=== PATIENT | male | born 1950 | race Caucasian/White ===

== ENCOUNTER 2019-01-12 06:17 | Inpatient (IN) | payer OTHER ==
[2019-01-12] MEDS ORDERED: fentaNYL CITRATE 250 MCG/5 ML VIAL ONE (07:22)
[2019-01-12] MEDS ORDERED: SUCCINYLCHOLINE CHLORIDE 200 MG/10 ML SYRINGE ONE (07:22)
[2019-01-12] MEDS ORDERED: PROPOFOL 20 ML ONE ×33 (07:22→16:09)
[2019-01-12] MEDS ORDERED: BENZOIN TINCTURE SWABSTICK TP ONE (07:23)
[2019-01-12] MEDS ORDERED: LIDOCAINE HCL/PF 2% SDV 5ML VIAL ONE (07:23)
[2019-01-12] MEDS ORDERED: ceFAZolin SODIUM 1 GM VIAL ONE ×3 (07:23→16:44)
[2019-01-12] MEDS ORDERED: HEPARIN NA (PORCINE) 5,000 UNITS/ML 1ML VIAL ONE ×2 (07:23→07:30)
[2019-01-12] MEDS ORDERED: THROMBIN (BOVINE) 5,000 UNIT VIAL TP ONE (07:23)
[2019-01-12] MEDS ORDERED: DEXAMETHASONE SOD PHOSPHATE 4 MG/1 ML VIAL ONE (07:23)
[2019-01-12] MEDS ORDERED: ONDANSETRON 4 MG/2 ML VIAL ONE (07:23)
[2019-01-12] MEDS ORDERED: TRANEXAMIC ACID 1000 MG/10 ML VIAL ONE ×2 (07:23→16:44)
[2019-01-12] MEDS ORDERED: VANCOMYCIN 1,000 MG VIAL (RESTRICTED TO ID ONLY) ONE (07:23)
[2019-01-12] MEDS ORDERED: BUPIVACAINE HCL/PF 0.25% (2.5MG/ML) 10 ML VIAL ONE ×2 (07:26→08:02)
[2019-01-12] MEDS ORDERED: MORPHINE 5 MG/10 ML AMP - FOR COMPOUNDING USE ONLY ONE (07:56)
[2019-01-12] MEDS ORDERED: BUPIVACAINE LIPOSOME/PF (EXPAREL) 266 MG/20 ML VIAL ONE (08:01)
[2019-01-12] MEDS ORDERED: MIDAZOLAM HCL 2 MG/2 ML SINGLE DOSE VIAL ONE ×2 (08:04)
[2019-01-12] MEDS ORDERED: VANCOMYCIN 1,000 MG VIAL (RESTRICTED TO ID ONLY) IVPB ONE (08:10)
[2019-01-12] MEDS ORDERED: ceFAZolin SODIUM 1 GM VIAL IVPB ONE (08:30)
[2019-01-12] MEDS ORDERED: KETAMINE HCL 200 MG/20 ML VIAL ONE ×2 (08:56→13:37)
[2019-01-12] MEDS ORDERED: ePHEDrine SULFATE 50 MG/1 ML AMPULE ONE (09:14)
[2019-01-12] MEDS ORDERED: ROCURONIUM BROMIDE 50 MG/5 ML VIAL ONE (10:39)
[2019-01-12] MEDS ORDERED: GLYCOPYRROLATE 0.2 MG/1 ML VIAL ONE (11:11)
[2019-01-12] MEDS ORDERED: NEOSTIGMINE METHYLSULFATE 0.5 MG/1 ML - 10 ML MDV ONE (11:11)
[2019-01-12 11:14] LABS: INR 1.14 (0.83-1.09); PROTHROMBIN TIME (PATIENT) 13.5 SEC (9.7-13.0)
[2019-01-12 11:17] LABS: ACTIVATED PTT 35.4 SECONDS (25.2-36.5)
[2019-01-12] MEDS ORDERED: PHENYLEPHRINE HCL 10 MG/1 ML SINGLE DOSE VIAL ONE (13:21)
[2019-01-12] MEDS ORDERED: ONDANSETRON 4 MG/2 ML VIAL IVPUSH PRN ×3 (14:02→18:49)
[2019-01-12] MEDS ORDERED: morphine SULFATE/PF 0.5 MG/ML (2cc Syringe - QUVA) IT ONE (14:04)
[2019-01-12] MEDS ORDERED: NALOXONE HCL 0.4 MG/ML VIAL IVPUSH PRN (14:04)
[2019-01-12] MEDS ORDERED: LACTATED RINGERS SOLUTION 1,000 ML IV SCH (14:15)
--- NOTE | 2019-01-12 15:26 | PN ---
Progress Note (short form) - Note Progress Note: 55M POD #0 s/p: 1. L1, L2, L3, L4, L5, S1 bilateral laminectomies 2. L1, L2, L3, L4, L5, S1 bilateral osteotomies (facetectomies) 3. L2-L3 bilateral Rodriguez Rosales Osteotomies 4. T5-S1 posterior instrumentation 5. L3-L4, L4-L5, L5-S1 discectomies 6. L3-L4, L4-L5, L5-S1 posterior lumbar interbody fusion 7. L3-L4, L4-L5, L5-S1 insertion biomechanical devices 8. T5-S1 posterolateral arthrodesis 9. Kyphoscoliosis deformity correction 10. Bone allograft 11. Bone autograft 12. Bone marrow aspiration 13. Complex wound closure (60cm) -Admit to ICU post-op. -Pain control: patient received pre-op TLIP block w/Exparel; OK to use SAFETY COMPLIANCE SPECIALIST if needed; transition to oral analgesia post-op; NO NSAID's. -DVT PPx: -Mechanical only: SINGH's, SCD's. -Chemical: None. -Incentive spirometry q15 min. -NPO until flatus. -Wise care; d/c when ambulating. -Post-op Ancef x 3 doses. -PT/OT/Rehab, OOB. -WBAT B/L LE. -No bending, lifting (>5 lbs), or twisting for 9-12 months. -Care per ICU & medical hospitalist Dr. Contreras. -Discharge planning: [facility]; f/u 7-10 days after rehab discharge at [facility] [address] [facility]; call for appointment; . -Will follow. Nathan Phan MD (Orthopaedic Surgery).
--- NOTE | 2019-01-12 15:30 | OP ---
Operative Note - Note: Operative Date: 01/12/19 Pre-Operative Diagnosis: 1. Thoracolumbar kyphoscoliosis with sagital vertical malalignment deformity. 2. 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 3. L1-S1 spinal stenosis with neurogenic claudication. 4. Thoracolumbar axial segmental instability. Severity of illness: 4. Operation: 1. L1, L2, L3, L4, L5, S1 bilateral laminectomies. 2. L1, L2, L3, L4 , L5, S1 bilateral osteotomies (facetectomies). 3. L2-L3 bilateral Rodriguez Rosales Osteotomies. 4. T5-S1 posterior instrumentation. 5. L3-L4, L4-L5, L5- S1 discectomies. 6. L3-L4, L4-L5, L5-S1 posterior lumbar interbody fusion. 7. L3-L4, L4-L5, L5-S1 insertion biomechanical devices. 8. T5-S1 posterolateral arthrodesis. 9. Kyphoscoliosis deformity correction. 10. Bone allograft. 11. Bone autograft. 12. Bone marrow aspiration. 13. Complex wound closure (60cm) Implants: Cages: Fortilink Tetrafuse. L3-L4: 15mm. L4-L5: 9mm. L5-S1: 16mm. Screws: 10x: 6.5x50mm. 13x: 6.5x40mm. 2x: 7.5x40mm. Rods: 2 x 500mm. Cross-Link: 1 Post-Operative Diagnosis: Same as Pre-op Surgeon: Nathan Phan Physician Surgeon: Donald Phan Anesthesiologist/PHOTOSTATIC COPY MAKER: Sanjana Yee Anesthesia: General, Local (TLIP block) Specimens Removed: L3-L4, L4-L5, L5-S1 discs Estimated Blood Loss (mls): 3,000 Drains & Tubes with Location: 1 x deep HemoVac Blood Volume Replaced (mls): 2,650 (Cell Saver+4U PRBC) Fluid Volume Replaced (mls): 4,000 (Crystalloid) Operative Report Dictated: Yes
[2019-01-12] MEDS ORDERED: SODIUM CHLORIDE 0.9% P/F 10 ML VIAL IJ ONE (16:45)
[2019-01-12] MEDS ORDERED: ACETAMINOPHEN 1000 MG/100 ML VIAL (NON FORMULARY) IVPB SCH (19:00)
[2019-01-12 20:17] LABS: EPI CELLS 0.5 /HPF (0-5/HPF); HYALINE CASTS 0 /lpf (0-8); URINE APPEARANCE TURBID; URINE BACTERIA 20.3 /hpf (NEGATIVE); URINE BILIRUBIN NEGATIVE (NEGATIVE); URINE COLOR YELLOW; URINE GLUCOSE (UA) NEGATIVE (NEGATIVE); URINE KETONE 1+ (NEGATIVE); URINE LEUK ESTERASE NEGATIVE (NEGATIVE); URINE NITRITE NEGATIVE (NEGATIVE); URINE PROTEIN TRACE (NEGATIVE); URINE RBC 113 /hpf (0-4); URINE UROBILINOGEN 0.2 mg/dL (0.2-1.0); URINE WBC 5 /hpf (0-5)
[2019-01-12] MEDS: ACETAMINOPHEN 1000 MG/100 ML VIAL (NON FORMULARY) IVPB SCH (20:21)
[2019-01-12] MEDS: LACTATED RINGERS SOLUTION 1,000 ML IV SCH (21:00)
--- NOTE | 2019-01-12 21:46 | CONSULT ---
Consultation: CONSULT SERVICE: ICU Resident HISTORY OF PRESENT ILLNESS: 68yo M with h/o hypothryoidism and chronic pain on medical marijuana who presents to the ICU s/p incredibly invasive spine surgery with Dr. Phan. Pt in OR had EBL of 3L with Cellsaver and 4UPRBC returning 2650cc worth of blood. Duration of procedure roughly 7-8 hrs under general anesthesia. Pt's procedure was uncomplicated, however due to the length of the procedure pt remained sedate during his recovery phase. Pt is seen intubated without sedation currently. Pt slightly arouses with painful stimuli. REVIEW OF SYSTEMS: As per HPI PHYSICAL EXAMINATION Vital Signs 01/12/19 01/12/19 01/12/19 06:53 19:00 19:07 Temperature 98.3 F 97.5 F L Pulse Rate 87 74 Respiratory 20 12 14 Rate Blood Pressure 143/99 97/79 O2 Sat by Pulse 97 100 Oximetry (%) 01/12/19 01/12/19 01/12/19 19:25 19:40 19:55 Temperature Pulse Rate 76 71 72 Respiratory 14 15 15 Rate Blood Pressure 106/73 97/74 101/68 O2 Sat by Pulse 100 100 Oximetry (%) 01/12/19 01/12/19 01/12/19 20:10 20:25 20:40 Temperature 97.5 F L Pulse Rate 87 88 89 Respiratory 18 18 18 Rate Blood Pressure 103/65 102/70 115/79 O2 Sat by Pulse 99 100 96 Oximetry (%) 01/12/19 21:00 Temperature Pulse Rate Respiratory 15 Rate Blood Pressure O2 Sat by Pulse 100 Oximetry (%) GENERAL: NAD, intubated, continued sedatative state HEENT: Nc/AT, ETT in place and secured, slight pallor noted, pinpoint pupils with appropriate reactivity, MMM NECK: No JVD LUNGS: CTA bilaterally. No wheezes, and no crackles. No accessory muscle use. HEART: RRR, normal S1 and S2 without murmur ABDOMEN: Soft, nondistended, no grimmacing with abdominal palpation, hypoactive bowel sounds, no masses. No hepatomegaly MUSCULOSKELETAL: Surgical dressing in place on back, no deformities noted, feet offloaded EXTREMITIES: 2+ distal pulses, warm, well-perfused. No peripheral edema. NEUROLOGICAL: Unable to assess due to sedation SKIN: Warm, dry, no rashes LINES: Wise in place with yellow urine in tube and collection bag, Hemovac drain noted Laboratory Results 01/12/19 01/12/19 01/12/19 06:27 08:01 10:35 PT with INR 13.50 H INR 1.14 H PTT (Actin FS) 35.4 Urine Color Urine Appearance Urine pH Ur Specific [place] Urine Protein Urine Glucose (UA) Urine Ketones Urine Blood Urine Nitrite Urine Bilirubin Urine Urobilinogen Ur Leukocyte Esterase Urine WBC (Auto) Urine RBC (Auto) Urine Casts (Auto) U Epithel Cells (Auto) Urine Bacteria (Auto) Blood Type A POSITIVE A POSITIVE Antibody Screen Negative Crossmatch IS Only See Detail 01/12/19 19:30 PT with INR INR PTT (Actin FS) Urine Color Yellow Urine Appearance Turbid Urine pH 5.0 Ur Specific [place] 1.038 H Urine Protein Trace Urine Glucose (UA) Negative Urine Ketones 1+ H Urine Blood 2+ H Urine Nitrite Negative Urine Bilirubin Negative Urine Urobilinogen 0.2 Ur Leukocyte Esterase Negative Urine WBC (Auto) 5 Urine RBC (Auto) 113 Urine Casts (Auto) 0 U Epithel Cells (Auto) 0.5 Urine Bacteria (Auto) 20.3 Blood Type Antibody Screen Crossmatch IS Only Active Medications Generic Name Dose Route Start Last Admin Trade Name Freq PRN Reason Stop Dose Admin Acetaminophen 1,000 mg 01/12/19 14:15 01/12/19 20:21 Ofirmev Injection - IVPB 01/13/19 08:16 1,000 mg Q6H HERRERA Administration Cefazolin Sodium/Dextrose 2 gm 01/12/19 23:00 Ancef 2 Gm Premixed Ivpb - IVPB 01/13/19 15:01 Q8H HERRERA Diphenhydramine HCl 25 mg 01/12/19 14:04 Benadryl Injection - IVPUSH ONCE PRN FOR ITCHING Fentanyl 50 mcg 01/12/19 14:02 01/12/19 20:25 Sublimaze Injection - IVPUSH 50 mcg [id number] PRN Administration PAIN-PACU ORDER X 4 DOSES ONLY Lactated Ringer's 1,000 mls @ 125 mls/hr 01/12/19 19:00 01/12/19 21:00 Lactated Ringers Solution IV 125 mls/hr ASDIR HERRERA Administration Levothyroxine Sodium 200 mcg 01/13/19 10:00 Synthroid - PO DAILY [facility] Morphine Sulfate 4 mg 01/13/19 14:06 Morphine Sulfate IVPUSH Q3H PRN Severe Pain 7-10 Naloxone HCl 0.4 mg 01/12/19 14:04 Narcan - IVPUSH ONCE PRN Sedation Ondansetron HCl 4 mg 01/12/19 14:04 Zofran Injection IVPUSH ONCE PRN NAUSEA Ondansetron HCl 4 mg 01/12/19 18:49 Zofran Injection IVPUSH Q6H PRN NAUSEA AND/OR VOMITING Oxycodone HCl 10 mg 01/13/19 14:04 Roxicodone - PO Q3H PRN Mild Pain 1-3 Oxycodone HCl 15 mg 01/13/19 14:04 Roxicodone - PO Q3H PRN Moderate Pain 4-6 Oxycodone HCl 10 mg 01/12/19 22:00 Oxycontin - PO BID [facility] Pregabalin 200 mg 01/12/19 22:00 Lyrica - PO TID [facility] ASSESSMENT/PLAN: T5 - S1 spinal instrumentation and procedure POD#0 Hypothyroidism --Pt trialed on CPAP for 30 minutes with RSI indicated likely successful extubation --Pt now following commands fully, however in pain --Pt extubated to VM 50% for time being now tolerating well --Bedside swallow to evaluate for medication administration otherwise NPO until flatus --Pain mgmt per Oxy 10mg BID PO scheduled with choice of oxycodone 10/15 for breakthrough pain --No NSAIDs given spinal procedure and reported AE in EMR --UA without any significant picture for infection --Wise to continue overnight --Perioperative antibiotics on board --Continue Lyrica 200mg TID --Pt's notes that he can have neuromotor convulsive-like behaviour when pt does not receive doses --Continue Synthroid 200mcg qdaily FEN: Fluids: LR until pt can tolerate PO Electrolyte abnormalities: AM labs Nutrition: NPO except for medications if passes bedside swallow can advance as tolerated once able to sit upwards PPX: DVT - SCDs only GI - Not indicated currently Dispo: ICU monitoring post extubation Case discussed with surgical and anesthesia teams Chito Wright, DO - IM PGY-2 Visit type - Emergency Visit Emergency Visit: No - New Patient This patient is new to me today: Yes Date on this admission: 01/13/19 - Critical Care Critical Care patient: Yes Total Critical Care Time (in minutes): 35 Critical Care Statement: The care of this patient involved high complexity decision making to prevent further life threatening deterioration of the patient 's condition and/or to evaluate & treat vital organ system(s) failure or risk of failure.
[2019-01-12] MEDS ORDERED: oxyCODONE HCL 10 MG SUSTAINED ACTING TABLET PO SCH (22:00)
[2019-01-12] MEDS ORDERED: DOCUSATE SODIUM 100 MG CAPSULE (FP) PO SCH (22:00)
[2019-01-12] MEDS: PREGABALIN 100 MG CAPSULE PO SCH (23:46)
[2019-01-12] MEDS: ceFAZolin 2 GRAM PREMIX BAG IVPB SCH (23:55)
[2019-01-13] MEDS ORDERED: morphine SULFATE 4 MG/ML VIAL IVPUSH ONE (01:08)
[2019-01-13] MEDS ORDERED: morphine SULFATE 4 MG/ML VIAL ONE (01:12)
[2019-01-13] MEDS ORDERED: HYDROmorphone *PCA* 10MG/50ML DISP.SYRIN PCA SCH (02:30)
[2019-01-13] MEDS: ACETAMINOPHEN 1000 MG/100 ML VIAL (NON FORMULARY) IVPB SCH ×4 (03:17→08:40)
[2019-01-13 06:05] LABS: HEMATOCRIT 40.1 % (35.4-49); HEMOGLOBIN 13.9 GM/dL (11.7-16.9); MCH 29.8 pg (25.7-33.7); MCHC 34.5 g/dl (32.0-35.9); MEAN CELL VOLUME 86.1 fl (80-96); MEAN PLT VOLUME 9.8 fl (7.5-11.1); PLATELET COUNT 111 K/MM3 (134-434); RBC 4.66 M/mm3 (4.00-5.60); RDW 14.2 % (11.9-15.9)
[2019-01-13] MEDS: PREGABALIN 100 MG CAPSULE PO SCH ×3 (06:20→21:47)
[2019-01-13] MEDS: ceFAZolin 2 GRAM PREMIX BAG IVPB SCH ×2 (06:20→15:34)
[2019-01-13 06:28] LABS: BLOOD UREA NITROGEN 22.5 mg/dL (7-18); CALCIUM 7.6 mg/dL (8.5-10.1); CREATININE 0.8 mg/dL (0.55-1.3); POTASSIUM 4.1 mmol/L (3.5-5.1)
--- NOTE | 2019-01-13 07:34 | PN ---
Physical Exam: SUBJECTIVE: Patient seen and examined at bedside this morning. Patient is POD # 1 s/p L1, L2, L3, L4, L5, S1 bilateral laminectomies, L1, L2, L3, L4, L5, S1 bilateral osteotomies (facetectomies), L2-L3 bilateral Rodriguez Rosales Osteotomies, T5-S1 posterior instrumentation, L3-L4, L4-L5, L5-S1 discectomies, L3-L4, L4-L5, L5-S1 posterior lumbar interbody fusion, L3-L4, L4-L5, L5-S1 insertion biomechanical devices,T5-S1 posterolateral arthrodesis, Kyphoscoliosis deformity correction. Patient endorses significant back pain, and his hydromorphone RESIDENTIAL CARE OFFICER settings were adjusted by Anesthesia this morning. Patient urinating via gaytan catheter, has not yet passed flatus or bowel movement. He denies subjective fevers, chills, shortness of breath, chest pain, palpitations, abdominal pain, nausea, vomiting. OBJECTIVE: Vital Signs Period Temp Pulse Resp BP Sys/Man Pulse Ox Last 24 Hr 97.5 F-98.3 F 71-97 12-21 97-115/57-87 96-100 GENERAL: The patient is awake, alert, and fully oriented, in no acute distress. HEAD: Normocephalic, atraumatic. EYES: PERRL, extraocular movements intact, sclera anicteric, conjunctiva clear. ENT: Oropharynx clear without exudates, moist mucous membranes. NECK: Supple without lymphadenopathy LUNGS: Good inspiratory effort and air entry bilaterally. Breath sounds equal, clear to auscultation bilaterally. No wheezes, no crackles. No accessory muscle use. HEART: Regular rate and rhythm, S1, S2 without murmur, rub or gallop. ABDOMEN: Soft, nondistended, nontender to light and deep palpation x4 quadrants. Normoactive bowel sounds, no guarding, no rebound tenderness. EXTREMITIES: 2+ radial, dorsalis pedis pulses bilaterally. Warm, well-perfused. No lower extremity edema bilaterally. NEUROLOGICAL: Cranial nerves II through XII grossly intact. Strength 5/5 bilateral upper and lower extremities. Sensation grossly intact bilaterally. No gross focal defects. PSYCH: Normal mood, normal affect upon my encounter. SKIN: Warm, dry. Dressing clean, dry, intact. LINES: Gaytan catheter (01/12), Hemovac drain (12/2018). Laboratory Results - last 24 hr 01/12/19 01/12/19 01/12/19 06:27 08:01 10:35 WBC RBC Hgb Hct MCV MCH MCHC RDW Plt Count MPV PT with INR 13.50 H INR 1.14 H PTT (Actin FS) 35.4 Sodium Potassium Chloride Carbon Dioxide Anion Gap BUN Creatinine Est GFR (CKD-EPI)AfAm Est GFR (CKD-EPI)NonAf Random Glucose Calcium Urine Color Urine Appearance Urine pH Ur Specific [place] Urine Protein Urine Glucose (UA) Urine Ketones Urine Blood Urine Nitrite Urine Bilirubin Urine Urobilinogen Ur Leukocyte Esterase Urine WBC (Auto) Urine RBC (Auto) Urine Casts (Auto) U Epithel Cells (Auto) Urine Bacteria (Auto) Blood Type A POSITIVE A POSITIVE Antibody Screen Negative Crossmatch IS Only See Detail 01/12/19 01/13/19 01/13/19 19:30 05:40 05:40 WBC 15.0 H RBC 4.66 Hgb 13.9 Hct 40.1 MCV 86.1 MCH 29.8 MCHC 34.5 RDW 14.2 Plt Count 111 L MPV 9.8 PT with INR INR PTT (Actin FS) Sodium 142 Potassium 4.1 Chloride 110 H Carbon Dioxide 25 Anion Gap 6 L BUN 22.5 H Creatinine 0.8 Est GFR (CKD-EPI)AfAm 107.13 Est GFR (CKD-EPI)NonAf 92.44 Random Glucose 125 H Calcium 7.6 L Urine Color Yellow Urine Appearance Turbid Urine pH 5.0 Ur Specific [place] 1.038 H Urine Protein Trace Urine Glucose (UA) Negative Urine Ketones 1+ H Urine Blood 2+ H Urine Nitrite Negative Urine Bilirubin Negative Urine Urobilinogen 0.2 Ur Leukocyte Esterase Negative Urine WBC (Auto) 5 Urine RBC (Auto) 113 Urine Casts (Auto) 0 U Epithel Cells (Auto) 0.5 Urine Bacteria (Auto) 20.3 Blood Type Antibody Screen Crossmatch IS Only Active Medications Generic Name Dose Route Start Last Admin Trade Name Freq PRN Reason Stop Dose Admin Acetaminophen 1,000 mg 01/12/19 14:15 01/13/19 03:19 Ofirmev Injection - IVPB 01/13/19 08:16 1,000 mg Q6H HERRERA Administration Cefazolin Sodium/Dextrose 2 gm 01/12/19 23:00 01/13/19 06:20 Ancef 2 Gm Premixed Ivpb - IVPB 01/13/19 15:01 2 gm Q8H HERRERA Administration Diphenhydramine HCl 25 mg 01/12/19 14:04 Benadryl Injection - IVPUSH ONCE PRN FOR ITCHING Hydromorphone HCl 10 mg 01/13/19 02:30 01/13/19 03:20 Hydromorphone 10 Mg/50 Ml-Ns RESIDENTIAL CARE OFFICER 01/20/19 02:31 10 mg RESIDENTIAL CARE OFFICER HERRERA Administration Protocol Lactated Ringer's 1,000 mls @ 125 mls/hr 01/12/19 19:00 01/12/19 21:00 Lactated Ringers Solution IV 125 mls/hr ASDIR HERRERA Administration Levothyroxine Sodium 200 mcg 01/13/19 10:00 Synthroid - PO DAILY HERRERA Naloxone HCl 0.4 mg 01/12/19 14:04 Narcan - IVPUSH ONCE PRN Sedation Ondansetron HCl 4 mg 01/12/19 14:04 Zofran Injection IVPUSH ONCE PRN NAUSEA Ondansetron HCl 4 mg 01/12/19 18:49 Zofran Injection IVPUSH Q6H PRN NAUSEA AND/OR VOMITING Oxycodone HCl 10 mg 01/13/19 14:04 Roxicodone - PO Q3H PRN PAIN LEVEL 7 - 10 Pregabalin 200 mg 01/12/19 22:00 01/13/19 06:20 Lyrica - PO 200 mg TID HERRERA Administration ASSESSMENT/PLAN: Patient is a 68 year old male with history of thyroid cancer, testicular cancer , admitted to ICU s/p L1, L2, L3, L4, L5, S1 bilateral laminectomies, L1, L2, L3, L4, L5, S1 bilateral osteotomies (facetectomies), L2-L3 bilateral Rodriguez Rosales Osteotomies, T5-S1 posterior instrumentation, L3-L4, L4-L5, L5-S1 discectomies, L3-L4, L4-L5, L5-S1 posterior lumbar interbody fusion, L3-L4, L4- L5, L5-S1 insertion biomechanical devices,T5-S1 posterolateral arthrodesis, Kyphoscoliosis deformity correction. Neurologic -Patient is awake, alert, fully oriented. No acute distress -Monitor for mental status changes. Pulmonary -Patient extubated overnight. Patient saturating well on 2L nasal canula. -Maintain oxygen saturation greater than 90% Cardiac -Patient denies chest pain, palpitations. -Continue cardiac monitoring, while in ICU Musculoskeletal -Patient is POD #1 s/p orthopedic spine procedure. -Pain control with Oxycodone 10mg PO Q3 hours PRN pain 7-10 -Continue home Pregabalin 200mg PO TID Endocrine Hypothyroidism -Synthroid 200mcg PO daily Infectious disease -Patient received Cefazolin 2 grams IV Q8 hours x2 doses -Ceftriaxone 1 gram -Follow urine culture FEN -IV lactated Ringer's at 125mL/ hour -Within normal limits. Follow CMP, replete as necessary -NPO until passing flatus Prophylaxis -SCDs bilateral lower extremities, per orthopedic surgery Disposition -Continue care in ICU Visit type - Emergency Visit Emergency Visit: Yes ED Registration Date: 01/12/19 Care time: The patient presented to the Emergency Department on the above date and was hospitalized for further evaluation of their emergent condition. - New Patient This patient is new to me today: Yes Date on this admission: 01/13/19 - Critical Care Critical Care patient: Yes Total Critical Care Time (in minutes): 35 Critical Care Statement: The care of this patient involved high complexity decision making to prevent further life threatening deterioration of the patient 's condition and/or to evaluate & treat vital organ system(s) failure or risk of failure. - Discharge Referral Referred to [facility] No
[2019-01-13] MEDS: HYDROmorphone *PCA* 10MG/50ML DISP.SYRIN PCA SCH ×2 (08:42→13:18)
[2019-01-13] MEDS ORDERED: LEVOTHYROXINE NA 200 MCG TABLET PO SCH (10:00)
--- NOTE | 2019-01-13 11:01 | PN ---
Teaching Attending Note Name of Resident: Raymond Nelson ATTENDING PHYSICIAN STATEMENT I saw and evaluated the patient. I reviewed the resident's note and discussed the case with the resident. I agree with the resident's findings and plan as documented. SUBJECTIVE: Patient seen and examined in the ICU. Awake and alert. Reports pain this M was "13/10". Anesthesia increased his BATTERY STACKER infusion and now he reports 9/10 and improving. No CP or SOB. No flatus or BM. Intake & Output 01/10/19 01/11/19 01/12/19 01/13/19 23:59 23:59 23:59 23:59 Intake Total 5850 Output Total 3710 Balance 2140 Weight 215 lb Last Vital Signs Temp Pulse Resp BP Pulse Ox 98.8 F 94 H 20 111/76 100 01/13/19 10:00 01/13/19 10:00 01/13/19 10:00 01/13/19 10:00 01/13/19 09:00 Active Medications Cefazolin Sodium/Dextrose (Ancef 2 Gm Premixed Ivpb -) 2 gm IVPB Q8H HERRERA Stop: 01/13/19 15:01 Last Admin: 01/13/19 06:20 Dose: 2 gm Diphenhydramine HCl (Benadryl Injection -) 25 mg IVPUSH ONCE PRN PRN Reason: FOR ITCHING Hydromorphone HCl (Hydromorphone 10 Mg/50 Ml-Ns) 10 mg BATTERY STACKER BATTERY STACKER [facility]; Protocol Stop: 01/20/19 02:31 Last Admin: 01/13/19 08:42 Dose: 10 mg Lactated Ringer's (Lactated Ringers Solution) 1,000 mls @ 125 mls/hr IV ASDIR HERRERA Last Admin: 01/12/19 21:00 Dose: 125 mls/hr Levothyroxine Sodium (Synthroid -) 200 mcg PO DAILY [facility] Naloxone HCl (Narcan -) 0.4 mg IVPUSH ONCE PRN PRN Reason: Sedation Ondansetron HCl (Zofran Injection) 4 mg IVPUSH ONCE PRN PRN Reason: NAUSEA Ondansetron HCl (Zofran Injection) 4 mg IVPUSH Q6H PRN PRN Reason: NAUSEA AND/OR VOMITING Oxycodone HCl (Roxicodone -) 10 mg PO Q3H PRN PRN Reason: PAIN LEVEL 7 - 10 Pregabalin (Lyrica -) 200 mg PO TID HERRERA Last Admin: 01/13/19 06:20 Dose: 200 mg GENERAL: Awake and alert, NAD HEENT: NC/AT, (-) Icterus NECK: No JVD LUNGS: CTA bilaterally. No wheezes, and no crackles. No accessory muscle use. HEART: RRR, normal S1 and S2 without murmur ABDOMEN: Soft, nondistended, no grimmacing with abdominal palpation, hypoactive bowel sounds, no masses. No hepatomegaly MUSCULOSKELETAL: Surgical dressing in place on back, no deformities noted, feet offloaded EXTREMITIES: 2+ distal pulses, warm, well-perfused. No peripheral edema. NEUROLOGICAL: non-focal SKIN: Warm, dry, no rashes Laboratory Results - last 24 hr 01/12/19 01/12/19 01/12/19 06:27 10:35 19:30 WBC RBC Hgb Hct MCV MCH MCHC RDW Plt Count MPV PT with INR 13.50 H INR 1.14 H PTT (Actin FS) 35.4 Sodium Potassium Chloride Carbon Dioxide Anion Gap BUN Creatinine Est GFR (CKD-EPI)AfAm Est GFR (CKD-EPI)NonAf Random Glucose Calcium Urine Color Yellow Urine Appearance Turbid Urine pH 5.0 Ur Specific [place] 1.038 H Urine Protein Trace Urine Glucose (UA) Negative Urine Ketones 1+ H Urine Blood 2+ H Urine Nitrite Negative Urine Bilirubin Negative Urine Urobilinogen 0.2 Ur Leukocyte Esterase Negative Urine WBC (Auto) 5 Urine RBC (Auto) 113 Urine Casts (Auto) 0 U Epithel Cells (Auto) 0.5 Urine Bacteria (Auto) 20.3 Blood Type A POSITIVE Antibody Screen Negative Crossmatch IS Only See Detail 01/13/19 01/13/19 05:40 05:40 WBC 15.0 H RBC 4.66 Hgb 13.9 Hct 40.1 MCV 86.1 MCH 29.8 MCHC 34.5 RDW 14.2 Plt Count 111 L MPV 9.8 PT with INR INR PTT (Actin FS) Sodium 142 Potassium 4.1 Chloride 110 H Carbon Dioxide 25 Anion Gap 6 L BUN 22.5 H Creatinine 0.8 Est GFR (CKD-EPI)AfAm 107.13 Est GFR (CKD-EPI)NonAf 92.44 Random Glucose 125 H Calcium 7.6 L Urine Color Urine Appearance Urine pH Ur Specific [place] Urine Protein Urine Glucose (UA) Urine Ketones Urine Blood Urine Nitrite Urine Bilirubin Urine Urobilinogen Ur Leukocyte Esterase Urine WBC (Auto) Urine RBC (Auto) Urine Casts (Auto) U Epithel Cells (Auto) Urine Bacteria (Auto) Blood Type Antibody Screen Crossmatch IS Only ASSESSMENT/PLAN: POD #1 1. L1, L2, L3, L4, L5, S1 bilateral laminectomies. 2. L1, L2, L3, L4, L5, S1 bilateral osteotomies (facetectomies). 3. L2-L3 bilateral Rodriguez Rosales Osteotomies. 4. T5-S1 posterior instrumentation. 5. L3-L4, L4-L5, L5-S1 discectomies. 6. L3-L4, L4-L5, L5-S1 posterior lumbar interbody fusion. 7. L3-L4, L4-L5, L5-S1 insertion biomechanical devices. 8. T5-S1 posterolateral arthrodesis. 9. Kyphoscoliosis deformity correction. 10. Bone allograft. 11. Bone autograft. 12. Bone marrow aspiration. 13. Complex wound closure (60cm) Hypothyroidism (?) UTI: asymptomatic Pain control per anesthesia PO once flatus O2 as needed OOB to chair and D/C gaytan Noted empiric ABX Synthroid VTE prophylaxis Floor when OK with surgery Dr Foley
[2019-01-13] MEDS ORDERED: PT OWN MED DRAWER 7, Y5N ONE (11:57)
[2019-01-13] MEDS: LACTATED RINGERS SOLUTION 1,000 ML IV SCH ×2 (12:04→19:13)
--- NOTE | 2019-01-13 12:31 | HP ---
Admitting History and Physical - Admission Chief Complaint: back pain History of Present Illness: 68yo M with h/o hypothryoidism and chronic pain came in for apinal repair with Dr Phan History Source: Patient Limitations to Obtaining History: No Limitations - Smoking History Smoking history: Never smoked - Alcohol/Substance Use Hx Alcohol Use: No Home Medications - Allergies Allergies/Adverse Reactions: Allergies Allergy/AdvReac Type Severity Reaction Status Date / Time Corticosteroids Allergy Severe SEVERE Verified 01/11/19 09:32 (Glucocorticoids) LUNG INFECTION NSAIDS (Non-Steroidal Allergy Intermediate GI PROBLEMS Verified 01/11/19 09:28 Anti-Inflamma Penicillins Allergy Verified 01/11/19 09:28 FLUOROQUINOLONES Allergy Intermediate WORSENED Uncoded 01/11/19 09:31 NEUROPATHY HORSE SERUM PROTEINS Allergy Uncoded 01/11/19 09:29 - Home Medications Home Medications: Ambulatory Orders Hydrocodone/Acetaminophen [[place] 10-325 Tablet] 1 each PO QID PRN 01/11/19 Levothyroxine Sodium [Synthroid] 200 mcg PO DAILY 01/11/19 Medical Marijuana 1 PRN PRN 01/11/19 Multivitamin [Multiple Vitamins] 1 each PO DAILY 01/11/19 Pregabalin [Lyrica -] 200 mg PO TID 01/11/19 Review of Systems - Review of Systems Constitutional: reports: Lethargy Eyes: reports: No Symptoms HENT: reports: No Symptoms Neck: reports: No Symptoms Cardiovascular: reports: No Symptoms Respiratory: reports: No Symptoms Gastrointestinal: reports: No Symptoms Genitourinary: reports: No Symptoms Musculoskeletal: reports: Back Pain Integumentary: reports: No Symptoms Neurological: reports: Weakness Endocrine: reports: No Symptoms Hematology/Lymphatic: reports: No Symptoms Psychiatric: reports: No Symptoms Physical Examination Vital Signs: Vital Signs Temperature 98.8 F 01/13/19 10:00 Pulse Rate 92 H 01/13/19 12:00 Respiratory Rate 20 01/13/19 12:00 Blood Pressure 114/78 01/13/19 12:00 O2 Sat by Pulse Oximetry (%) 100 01/13/19 09:00 Constitutional: Yes: Well Nourished, No Distress Eyes: Yes: WNL HENT: Yes: WNL Neck: Yes: WNL Cardiovascular: Yes: WNL Respiratory: Yes: WNL Gastrointestinal: Yes: WNL Renal/: Yes: WNL Musculoskeletal: Yes: Back Pain Extremities: Yes: WNL Edema: No Peripheral Pulses WNL: Yes Integumentary: Yes: WNL Wound/Incision: Yes: Clean/Dry, Well Approximated Neurological: Yes: WNL ...Motor Strength: WNL Psychiatric: Yes: WNL Labs: CBC, BMP 01/13/19 05:40 01/13/19 05:40 Assessment/Plan -55M POD s/p: L1, L2, L3, L4, L5, S1 bilateral laminectomies 2. L1, L2, L3, L4, L5, S1 bilateral osteotomies (facetectomies) 3. L2-L3 bilateral Rodriguez Rosales Osteotomies 4. T5-S1 posterior instrumentation 5. L3-L4, L4-L5, L5-S1 discectomies 6. L3-L4, L4-L5, L5-S1 posterior lumbar interbody fusion 7. L3-L4, L4-L5, L5-S1 insertion biomechanical devices 8. T5-S1 posterolateral arthrodesis 9. Kyphoscoliosis deformity correction 10. Bone allograft 11. Bone autograft 12. Bone marrow aspiration 13. Complex wound closure cont pain management, incentive spirometry, IV fluids, NPO except meds. S/P successful extubation. -GI, DVT prophylaxis -ID: covered with ancef -hypothyroidism: on synthoid. -cont stool softeners for opioid induced constipation -assessment and plan discussed with pt ,his , and staff. left my cell phone with to call me directly with any concerns. -
[2019-01-13] MEDS ORDERED: oxyCODONE HCL 5 MG TABLET PO PRN ×3 (14:04)
[2019-01-13] MEDS ORDERED: morphine SULFATE 4 MG/ML VIAL IVPUSH PRN (14:06)
--- NOTE | 2019-01-13 15:47 | OP ---
Date of Operation: 01/12/2019 Pre-Operative Diagnosis: 1. Thoracolumbar kyphoscoliosis (kyphosis & scoliosis). 2. Sagittal vertical malalignment, imbalance, and spinal deformity. 3. 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 4. L1-S1 spinal stenosis with neurogenic claudication. 5. L1-S1 degenerative disease. 6. Severity of illness: 4. Post-Operative Diagnosis: 1. Thoracolumbar kyphoscoliosis (kyphosis & scoliosis). 2. Sagittal vertical malalignment, imbalance, and spinal deformity. 3. 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 4. L1-S1 intervertebral disc disorders with neurogenic claudication. 5. L1-S1 degenerative disease. 6. Severity of illness: 4. Procedure Performed: 1. L1, L2, L3, L4, L5, S1 bilateral laminectomies & facetectomies. (14265-73 , 41546-80 x 5) 2. L3-L4, L4-L5, L5-S1 posterolateral arthrodesis & posterior lumbar interbody fusion (PLIF). (35700 x 3) 3. L3-L4, L4-L5, L5-S1 insertion biomechanical devices (40592 x 3). 4. T5-S1 posterior instrumentation. (27492-42-52) 5. T5-T12 posterolateral arthrodesis. (39459-18, 04423-07 x 7) 6. L1-L2 posterolateral arthrodesis. (71470-17, 41959-08) 7. Morselized bone autograft. (78407) 8. Morselized bone allograft. (64656) 9. Bone marrow aspiration for bone grafting. (21702) 10. Complex wound closure (60cm) (89757 x 8) Surgeon: Nathan Phan M.D. Wound Specialist: Donald Phan M.D. Anesthesiologist: Sanjana Yee M.D. Anesthesia: General, Local (TLIP block). Position: Prone. Incision: Midline. Specimens Removed: L3-L4, L4-L5, L5-S1 disc. Implants: Cages: Fortilink Tetrafuse. L3-L4: 15mm. L4-L5: 9mm. L5-S1: 16mm. Screws: 10 x 6.5x50mm. 13 x 6.5x40mm. 2 x 7.5x40mm. Rods: 2 x 500mm. Cross-Link: 1 Drains: 1 x Deep HemoVac. Estimated Blood Loss: 3,000cc. Intravenous Fluid: 4L crystalloid. Transfusions: 1250cc Cell Saver + 4U PRBC (1400cc). Complications: None. Bacteriology: None. Closure: No. 1 Vicryl, 2-0 Biosyn absorbable sutures. Indications: The patient was indicated for the above listed surgical procedure due to progressive spinal deformity affecting balance and safety, and due to progressive neurological and functional decline that limits his mobility and ability to attend to his activities of daily living. The patient was identified in the holding area by his armband. A long discussion was held with the patient (in the presence of his ) regarding the risks, benefits, and alternatives of the above-listed procedure. The risks include, but are not limited to: Pain, bleeding, infection, damage to surrounding structures (including nerves, blood vessels, skin, ligaments, tendons, and bone), wound complications, failure of hardware/implants/reduction , need for further surgery, blood clots, myocardial infarction, cerebrovascular injury, pulmonary embolism, anesthesia complications, limp, numbness, paresthesias, loss of function, and . Benefits may include reduction of: spinal deformity, imbalance, back pain, radiculopathy, neurogenic claudication, and improved overall mobility and function. Alternatives include no surgery. All questions were answered. The patient understood and agreed to the procedure. Informed consent was obtained, witnessed, and verified. The patient's lumbar spine was marked. He was then assessed by the anesthesia team who proceeded to administer a bilateral imaging-guided TLIP block to facilitate post-operative pain management. The patient was then taken to the operating room after being seen by the anesthesia and nursing staff. Procedure: The patient was brought into the operating room, where anesthesia was then administered. This included 2g IV Ancef, 1g IV Vancomycin, and 1g IV tranexamic acid (TXA). A time-out was done led by , the attending surgeon. An indwelling Wise catheter was successfully inserted by the nursing team. The intra-operative neuromonitoring team provided prepositioning baseline motor and sensory readings. The patient was then safely placed in a prone position with all bony prominences well-padded on a [facility] spine table with strict attention paid to maintenance of sagittal vertical alignment. Retroversion of the pelvis was avoided by ensuring that the hips were extended. This also ensured appropriate lumbar lordosis. The arms were placed on well-padded arm boards and maintained with standard forward flexion, abduction, and external rotation of the shoulders , and flexion of the elbows. Special attention was given to the safe positioning of the cervical spine. The patients eyes, and belly were all free. The table was placed in 6 degrees of reverse Trendelenburg position to avoid ophthalmic vein congestion. Post-positional motor and sensory readings confirmed no change. A C-arm fluoroscopy unit was positioned perpendicularly to the table and maintained at the level of the upper thoracic spine, except when needed. The skin was prepped in standard, sterile fashion using betadine prep & scrub, wiped off with alcohol, and DuraPrep applied. Standard window draping was utilized, and this included draping of the C-arm. Appropriate pre-operative imaging, including lumbar spine x-rays, and MRI, were available throughout the case for intraoperative evaluation. Verification of the intended surgical levels was confirmed with a lateral fluoroscopic x-ray using a Ribera elevator for localization. A time-out was repeated, and the case began. A midline skin incision was performed from the tip of the spinous process of T12 to the tip of the spinous process of S2. Using electrocautery, the dissection was carried down through subcutaneous fat and then through the midline of the lumbodorsal fascia down to the tips of the spinous processes. A subperiosteal dissection was performed using a combination of unipolar electrocautery and Ribera elevation. This was carried down the spinous process, over the laminae, across the facet joints, and out over the tips of the transverse processes from L1 to S1. The L1-S1 joint capsules were pathologically hypertrophic. They were ablated using electrocautery and resected with rongeurs. There was an obvious lumbar scoliotic deformity noted. The posterolateral dissection was performed with attention to hemostatis by utilizing both unipolar as well as bipolar electrocautery. The posterolateral space was packed with Ray-Gildardo sponges. A Sharif clamp was placed over an exposed interspinous space and, once again, a lateral fluoroscopic x-ray helped identify the correct levels for dissection. A rongeur was used to grasp the L5 spinous processes and demonstrate the mobility of the L5-S1 segments. This confirmed the location of the last mobile segment. The bilateral L1, L2, L3, L4, L5, and S1 laminae were resected utilizing Kerrison rongeur upcuts combined with Leksell rongeurs. This completed the L1- S1 laminectomies. All harvested bone was saved, freed of fibrous tissue, and milled with a bone mill. Next, an osteotome was utilized to longitudinally split the pars interarticularis and the inferior facets of L1, L2, L3, L4, and L5 bilaterally. The osteotomized bone was imploded towards the thecal sac, which was protected with cottonoid patties, and removed with either a Leksell rongeur or a Kerrison ronguer. Upon removal of all osteotomized bone, we gained clear and easy access to the superior facets of L2, L3, L4, L5, and S1, where tight recess stenosis was appreciated. The exiting L1, L2 L3, L4, L5 & S1 nerve roots were identified and protected. The medial edge of the superior facets was resected at each level bilaterally using Kerrison rongeurs. This freed the theca and the exiting nerve roots at each level. The foraminae, bilaterally, at L1-L2, L2-L3, L3-L4, L4-L5, and L5-S1 were inspected utilizing an angled ball-tipped probe and proved to be generously capacious in accommodating the unobstructed exit of the nerve root at that level. The crowding of the convoluted ligamentum flavum and posterior facet joint capsules contributed to the recess stenosis. These structures were excised using Kerrison upcuts, thus fully completing the decompression. All retractors were relaxed and removed. A Jamshidi needle was delivered into the left posterior ileum through the same surgical incision. Via this, 120 mL of bone marrow was aspirated and spun down to isolate a mix of osteoprogenitor and hematopoietic cells. Retractors were inserted once again. The following was performed at L3-L4, L4-L5 and also at L5-S1: The theca was gently mobilized from right to left and from left to right using a nerve root retractor. In order to do this, we ensured that each nerve root was completely free in its neural foramen as previously described. With the disc clearly visualized, large epidural veins were cauterized using bipolar electrocautery. The disc was approached from the left side and using a # 11-blade, an cruciate annulotomy was performed. Shabana were passed into the disc at each level. At each level the discs were morselized with rotation of the shabana, and then extricated with pituitary rongeurs and saved for lab evaluation. The end plates were freed of all soft tissues using a serrated curette. Milled bone autograft was packed into the interbody space, thus completing an anterior arthrodesis of the intervertebral space. At L3-L4, a size 15mm x 22mm Fortilink Tetrafuse spacer was inserted. At L4-L5, a size 9mm x 22mm Fortilink Tetrafuse spacer was inserted. At L5-S1, a size 16mm x 22mm Fortilink Tetrafuse spacer was inserted. Each spacer was packed with bone autograft prior to insertion. Each cage was placed in a Press-Fit type manner where the shabana were one size under the actual size of the spacer placed as outlined above. An interference fit of the cage assured as we relied on ligamentotaxis for fixation. No dural problems were encountered, and the dura appeared healthy throughout the procedure. At this point, the neuromonitoring revealed no complications. In fact, there was an improvement in MEP readings relative to baseline reported at this point. A midline skin incision was performed from the tip of the spinous process of T4 to the tip of the spinous process of T12. Using electrocautery, the dissection was carried down through subcutaneous fat and then through the midline of the lumbodorsal fascia down to the tips of the spinous processes. A subperiosteal dissection was performed using a combination of unipolar electrocautery and Ribera elevation. This was carried down the spinous process, over the laminae, across the facet joints, and out over the tips of the transverse processes from T5 to T12. In this dissection, the capsules of the T4-T5 joints were preserved bilaterally. Pedicle screws were then seated bilaterally from T5-S1 utilizing standard anatomical guidelines: IE the intersection of the horizontal axis of the transverse process with the longitudinal axis of the inferior facet at each level. Utilizing lateral fluoroscopic x-ray, a 4.5mm pneumatic drill (in the lumbosacral spine) and a 3.5mm drill (in the thoracic spine) was passed via the pedicle at each level, into the corresponding vertebral body. Imaging allowed us to ensure that the drill screw was delivered along the undersurface of each endplate. This was the best quality bone fixation at each level. Each pedicle was palpated with a ball tip feeler. No breech of anterior, medial , lateral, caudal or cranial bone bed was noted. Precision Spine pedicle screws were inserted from T5-S1. Each screw was reevaluated with lateral and anteroposterior fluoroscopy as well as intraoperative neuromonitoring. All intraoperative neuromonitoring readings were at or above the safe passage of 10 mA. The L1 and S1 pedicles were inspected and palpated using an angled ball-tipped probe. There was no evidence of screw breach involving any of the pedicles. Next, two rods were contoured, inserted and fixed into the screw heads with the appropriate screw caps. A torque-limiting device completed the fixation of each cap into each screw head. A single crosslink was utilized. The muscle was gently retracted off the intertransverse plane. All packing sponges were removed. Milled/morselized autologous bone, with morselized allograft bone expansion, was combined with the bone marrow aspiration and used for the posterolateral arthrodesis along the intertransverse plane from T5 to S1. The recipient bone bed was denuded of all soft tissue. No burring was necessary due to healthy bleeding of each bony surface, including the posterior surface of the transverse processes and the lateral surface of the pars interarticularis at each level. This completed the posterolateral arthrodesis. Throughout the case, the wound was irrigated with normal saline solution to keep the exposed soft tissues hydrated. The retractors were released every 15 to 20 minutes to enable adequate blood flow to the paraspinal muscles. These muscles were gently massaged upon release of the retractors to further facilitate blood flow. At the end of the procedure, fragmented and compromised paraspinal muscle was superficially debrided. The dura was inspected and was completely intact. Closure: The paraspinal muscles and lumbodorsal fascia overlying the paraspinal musculature was closed in the midline using #1 Vicryl sutures in simple interrupted fashion. Despite excellent hemostasis, a deep HemoVac drain was utilized. The wound was repeatedly thoroughly irrigated with normal saline solution. The subcutaneous tissues were closed using #1 Vicryl sutures. The skin was closed using a running 2-0 Biosyn absorbable suture. This completed a complex, 4-layered wound closure of approximately 60cm. The skin was then painted with benzoin and Steri-Strips were applied perpendicular to the incision. A Primapore adhesive Telfa island dressing was applied over the Steri-Strips and a sterile, compressive dressing was applied using 4x4 gauze pads. The skin was painted with DuraPrep. The wound was then sealed with adhesive Ioban. Final AP & lateral fluoroscopic analysis revealed a T5-S1 instrumentation was intact & place. The L3-L4, L4-L5, & L5-S1 disc heights were reconstituted with visibly patent neuroforaminae. There was no fluoroscopic evidence of retained sponges or needles. The sponge and needle counts were correct at the end of the case and I, the attending surgeon, was present and scrubbed throughout the case. The patient was transferred to a hospital bed. All neural monitoring leads were removed. The patient was then transferred to the recovery room in stable condition, as per the anesthesia team, having tolerated the procedure well. Overall comment: Operation went extremely well with no complications. All appropriate goals were achieved in the execution of this operative event. MD ETRESA Castillo/[id number] MTDD
[2019-01-13] MEDS ORDERED: ADENOSINE 6 MG/2 ML VIAL IVPUSH ONE ×5 (16:52→21:23)
--- NOTE | 2019-01-13 17:09 | RAPID ---
Physical Examination Vital Signs: Vital Signs Temperature 98.7 F 01/13/19 14:00 Pulse Rate 98 H 01/13/19 16:00 Respiratory Rate 11 01/13/19 16:00 Blood Pressure 131/82 01/13/19 16:00 O2 Sat by Pulse Oximetry (%) 98 01/13/19 13:57 Labs: CBC, BMP 01/13/19 05:40 01/13/19 05:40 Rapid Response - Rapid Response Assessment: Rapid response called to unit. Upon assessemnt, pt found to be tachycardic with HR 200+. Pt seen fully awake and alert, able to have full conversation. Only complaint is back pain, but denies chest pain, shortness of breath, abd pain or other symptoms. Pt remained normotensive upon exam. VS: 116/58 HR 223 100% A/P: -EKG done showed LAD, RBBB, inverted T waves (seen on previous EKG) -Pacer pads placed -Adenosine 12 mg IVP given; with good effect, HR improved to 110s -CBC/CMP/trops/amg
--- NOTE | 2019-01-13 18:40 | PN ---
Progress Note (short form) - Note Progress Note: Anesthesiology Post-op/Pain Service POD#1 s/p T5-S1 PLIF under GA and TLIP block, with post-op WEB APPLICATIONS PROGRAMMER. Pt. currently stable; had one episode of apparent SVT which responded to adenosine. He is still being monitored in ICU. WEB APPLICATIONS PROGRAMMER was increased earlier this morning and he is doing better from pain standpoint. No other issues. 68 y.o. man with now stable post-operative course under observation in ICU. Continue WEB APPLICATIONS PROGRAMMER for now and further care per ICU team.
--- NOTE | 2019-01-13 18:51 | HOSP ---
Physical Examination Vital Signs: Vital Signs Temperature 98.7 F 01/13/19 14:00 Pulse Rate 126 H 01/13/19 17:00 Respiratory Rate 20 01/13/19 17:00 Blood Pressure 136/106 H 01/13/19 17:00 O2 Sat by Pulse Oximetry (%) 99 01/13/19 17:00 Labs: CBC, BMP 01/13/19 05:40 01/13/19 05:40 Hospitalist Encounter Assessment: Called for rapid response at 4:44 PM in ICU. On arriving in room, pt was conversant and comfortable throughout the rapid. Only complaint was back pain. HR was 220+. Monitor showed narrow complex. BP initially was 116/58. Pt was placed on continuous EKG and Defib pads were placed. EKG showed SVT. Adenosine 6 was given with no change in rhythm. Adenosine 12 was given and pt reverted to sinus tachycardia. Of note, EKG showed sinus tachycardia with bifascicular block and TWI in V1, V2, V3, with early transition. Block, TWI, and early transition present on prior EKG. Pt states he recalled his primary doctor told him to see a joiner apprentice because of an abnormal ekg some time ago, though he hadn't made an appointment. He states he had forgotten and did not mention this before. Pt has hx thyroid CA s/p thyroidectomy. Pt states he takes 200 micrograms synthroid in part to suppress growth of residual thyroid tissue because "they got 95% of it". At this time, pt is in sinus tachy at ~110 bpm. Comfortable. BP 131/89. Labs ordered: CBC, CMP, Mg, Phos, TFTs ? etiology of svt. Likely related to stress of surgery. ? component of synthyroid. Visit type - Emergency Visit Emergency Visit: No - New Patient This patient is new to me today: No - Critical Care Critical Care patient: Yes Total Critical Care Time (in minutes): 35 Critical Care Statement: The care of this patient involved high complexity decision making to prevent further life threatening deterioration of the patient 's condition and/or to evaluate & treat vital organ system(s) failure or risk of failure.
[2019-01-13 20:09] LABS: BASO % 0.1 % (0-2.0); EOS % 0.1 % (0-4.5); HEMATOCRIT 38.4 % (35.4-49); HEMOGLOBIN 13.1 GM/dL (11.7-16.9); MCH 29.8 pg (25.7-33.7); MCHC 34.1 g/dl (32.0-35.9); MEAN CELL VOLUME 87.3 fl (80-96); MEAN PLT VOLUME 10.1 fl (7.5-11.1); MONO % 8.4 % (3.8-10.2); NEUT % 86.4 % (42.8-82.8); PLATELET COUNT 99 K/MM3 (134-434); RDW 14.3 % (11.9-15.9); WHITE BLOOD COUNT 16.3 K/mm3 (4.0-10.0)
[2019-01-13 20:25] LABS: ALBUMIN 2.4 g/dl (3.4-5.0); BILIRUBIN,TOTAL 0.6 mg/dL (0.2-1); BLOOD UREA NITROGEN 23.6 mg/dL (7-18); CALCIUM 7.8 mg/dL (8.5-10.1); CREATININE 0.8 mg/dL (0.55-1.3); MAGNESIUM 1.9 mg/dL (1.8-2.4); PHOSPHOROUS 2.5 mg/dL (2.5-4.9); POTASSIUM 4.1 mmol/L (3.5-5.1); TOT PROT 4.3 g/dl (6.4-8.2)
--- NOTE | 2019-01-13 21:22 | PN ---
Progress Note (short form) - Note Progress Note: UPDATE: Pt returned to SVT of 180bpm and Lopressor 5mg IVP was administered. BP prior to medication was 139/97 with automated cuff. After Lopressor was administered pt had SVT break and was converted back to sinus rhythm at 90bpm with finalized pressure of 111/73. Given pt's conversion back to sinus rhythm and significant spinal surgery, pt anticoagulation is being deferred. Pt had CHADSvASc 2 however can be initiated on oral agent in day time instead of heparin gtt bridge to avoid major bleeding event [1] --Pt's TSH low with FT4 high. Will reduce pt's synthroid dose to 112mcg for tomorrow AM Pt seen to convert to SVT at 210bpm on monitor. Pt comfortable with only back pain when asked. Pt's MAP remained above 70 at this time. Bedside pads were initiated and Adenosine 12mg was given, however no break on monitor in SVT was seen. Pt's BP remained stable and second dose of Adenosine 12mg was administered. Break in SVT was achieved with underlying rhythm of atrial fibrillation seen on monitor. Pt shortly returned to SVT rhythm of 190bpm and Lopressor 5mg IVP was asked for. During drawing of the lopressor pt was also asked to perform Valsalva Maneuver. After 5mg IVP Lopressor administration pt returned to 120bpm in atrial fibrillation. EKG was performed which showed pt's unchanged incomplete RBBB and TWI, however pt was confirmed to be in Atrial fibrillation. Cardiology was called in consult who recommended starting Cardizem 30mg q6h PO until evaluation. Cardiology also requested anticoagulation given CHADsVasc of 2 if cleared by surgery. Surgery was called who cleared pt for anticoagulation without bolus of heparin if needed. EKG post SVT - Atrial fibrillation LAD, bifasicular block (RBBB incomplete with LAD), no JOSEPH/STD changes (placed in chart) References: [1] BRIDGE trial; [place] Mar 22, 2015
[2019-01-13] MEDS ORDERED: METOPROLOL TARTRATE 5 MG/5 ML VIAL IVPUSH ONE ×2 (21:23→23:10)
[2019-01-13] MEDS ORDERED: dilTIAZem HCL 30 MG TABLET (FP) PO ONE (21:36)
[2019-01-13] MEDS: oxyCODONE HCL 5 MG TABLET PO PRN (21:47)
[2019-01-13] MEDS ORDERED: dilTIAZem HCL 50 MG/10 ML - 10 ML VIAL IVPUSH ONE (22:00)
[2019-01-14] MEDS: HYDROmorphone *PCA* 10MG/50ML DISP.SYRIN PCA SCH ×2 (03:41→19:02)
[2019-01-14] MEDS: dilTIAZem HCL 30 MG TABLET (FP) PO SCH ×4 (04:15→17:23)
[2019-01-14] MEDS: oxyCODONE HCL 5 MG TABLET PO PRN ×4 (04:16→22:05)
[2019-01-14 06:28] LABS: HEMATOCRIT 35.6 % (35.4-49); MCH 29.6 pg (25.7-33.7); MCHC 33.9 g/dl (32.0-35.9); MEAN CELL VOLUME 87.3 fl (80-96); MEAN PLT VOLUME 10.2 fl (7.5-11.1); PLATELET COUNT 96 K/MM3 (134-434); RBC 4.07 M/mm3 (4.00-5.60); RDW 14.4 % (11.9-15.9); WHITE BLOOD COUNT 16.9 K/mm3 (4.0-10.0)
[2019-01-14] MEDS: PREGABALIN 100 MG CAPSULE PO SCH ×3 (06:29→21:50)
[2019-01-14 06:56] LABS: ALBUMIN 2.2 g/dl (3.4-5.0); BILIRUBIN,TOTAL 0.7 mg/dL (0.2-1); BLOOD UREA NITROGEN 25.2 mg/dL (7-18); CALCIUM 7.7 mg/dL (8.5-10.1); CREATININE 0.7 mg/dL (0.55-1.3); PHOSPHOROUS 2.6 mg/dL (2.5-4.9); POTASSIUM 4.1 mmol/L (3.5-5.1); TOT PROT 4.2 g/dl (6.4-8.2)
[2019-01-14] MEDS ORDERED: LEVOTHYROXINE NA 112 MCG TABLET (FP) PO SCH (07:00)
--- NOTE | 2019-01-14 08:33 | PN ---
Physical Exam: SUBJECTIVE: Patient seen and examined at bedside this morning. Overnight rapid response was called patient noted to be in SVT which converted to sinus tachycardia with Adenosine. Patient returned to SVT rhythm and converted to normal sinus rhythm with Adenosine, and Lopressor. Patient passing flatus. This morning patient endorses back pain, temporarily palliated with DRIVE IN WAITER/WAITRESS. He denies subjective fevers, chills, shortness of breath, chest pain, palpitations , abdominal pain, nausea, vomiting. OBJECTIVE: Vital Signs Period Temp Pulse Resp BP Sys/Man Pulse Ox Last 24 Hr 98.1 F-98.8 F 79-218 9-21 110-183/69-157 85-100 GENERAL: The patient is awake, alert, and fully oriented, in no acute distress. HEAD: Normocephalic, atraumatic. EYES: PERRL, extraocular movements intact, sclera anicteric, conjunctiva clear. ENT: Oropharynx clear without exudates, moist mucous membranes. NECK: Supple without lymphadenopathy LUNGS: Good inspiratory effort and air entry bilaterally. Breath sounds equal, clear to auscultation bilaterally. No wheezes, no crackles. No accessory muscle use. HEART: Regular rate and rhythm, S1, S2 without murmur, rub or gallop. ABDOMEN: Soft, nondistended, nontender to light and deep palpation x4 quadrants. Normoactive bowel sounds, no guarding, no rebound tenderness. EXTREMITIES: 2+ radial, dorsalis pedis pulses bilaterally. Warm, well-perfused. No lower extremity edema bilaterally. NEUROLOGICAL: Cranial nerves II through XII grossly intact. Strength 5/5 bilateral upper and lower extremities. Sensation grossly intact bilaterally. No gross focal defects. PSYCH: Normal mood, normal affect upon my encounter. SKIN: Warm, dry. Dressing clean, dry, intact. LINES: Wise catheter (01/12), Hemovac drain (12/2018). Laboratory Results - last 24 hr 01/13/19 01/13/19 01/14/19 19:15 19:15 05:08 WBC 16.3 H 16.9 H RBC 4.40 4.07 Hgb 13.1 12.0 Hct 38.4 35.6 MCV 87.3 87.3 MCH 29.8 29.6 MCHC 34.1 33.9 RDW 14.3 14.4 Plt Count 99 L 96 L MPV 10.1 10.2 Absolute Neuts (auto) 14.1 H Neutrophils % 86.4 H Lymphocytes % 5.0 L Monocytes % 8.4 Eosinophils % 0.1 Basophils % 0.1 Nucleated RBC % 0 Sodium 141 Potassium 4.1 Chloride 107 Carbon Dioxide 29 Anion Gap 5 L BUN 23.6 H Creatinine 0.8 Est GFR (CKD-EPI)AfAm 107.13 Est GFR (CKD-EPI)NonAf 92.44 Random Glucose 114 H Calcium 7.8 L Phosphorus 2.5 Magnesium 1.9 Total Bilirubin 0.6 AST 271 H ALT 63 H Alkaline Phosphatase 63 Total Protein 4.3 L Albumin 2.4 L TSH 0.01 L Free T4 1.75 H 01/14/19 05:08 WBC RBC Hgb Hct MCV MCH MCHC RDW Plt Count MPV Absolute Neuts (auto) Neutrophils % Lymphocytes % Monocytes % Eosinophils % Basophils % Nucleated RBC % Sodium 138 Potassium 4.1 Chloride 107 Carbon Dioxide 29 Anion Gap 3 L BUN 25.2 H Creatinine 0.7 Est GFR (CKD-EPI)AfAm 113.18 Est GFR (CKD-EPI)NonAf 97.65 Random Glucose 115 H Calcium 7.7 L Phosphorus 2.6 Magnesium 2.0 Total Bilirubin 0.7 AST 209 H ALT 55 Alkaline Phosphatase 58 Total Protein 4.2 L Albumin 2.2 L TSH Free T4 Active Medications Generic Name Dose Route Start Last Admin Trade Name Freq PRN Reason Stop Dose Admin Diltiazem HCl 30 mg 01/14/19 04:00 01/14/19 06:14 Cardizem - PO Not Given Q6HPO HERRERA Diphenhydramine HCl 25 mg 01/12/19 14:04 Benadryl Injection - IVPUSH ONCE PRN FOR ITCHING Hydromorphone HCl 10 mg 01/13/19 07:52 01/14/19 03:41 Hydromorphone 10 Mg/50 Ml-Ns DRIVE IN WAITER/WAITRESS 01/20/19 02:[address] WAITER/WAITRESS HERRERA Administration Protocol Lactated Ringer's 1,000 mls @ 125 mls/hr 01/12/19 19:00 01/13/19 19:13 Lactated Ringers Solution IV Not Given ASDIR HERRERA Levothyroxine Sodium 112 mcg 01/14/19 07:00 01/14/19 06:30 Synthroid - PO 112 mcg DAILY@0700 HERRERA Administration Naloxone HCl 0.4 mg 01/12/19 14:04 Narcan - IVPUSH ONCE PRN Sedation Ondansetron HCl 4 mg 01/12/19 14:04 Zofran Injection IVPUSH ONCE PRN NAUSEA Ondansetron HCl 4 mg 01/12/19 18:49 Zofran Injection IVPUSH Q6H PRN NAUSEA AND/OR VOMITING Oxycodone HCl 10 mg 01/13/19 07:45 01/14/19 04:16 Roxicodone - PO 10 mg Q3H PRN Administration PAIN LEVEL 7 - 10 Pregabalin 200 mg 01/12/19 22:00 01/14/19 06:29 Lyrica - PO 200 mg TID HERRERA Administration ASSESSMENT/PLAN: Patient is a 68 year old male with history of thyroid cancer s/p thyroid resection, testicular cancer s/p right orchiectomy, admitted to ICU s/p L1, L2 , L3, L4, L5, S1 bilateral laminectomies, L1, L2, L3, L4, L5, S1 bilateral osteotomies (facetectomies), L2-L3 bilateral Rodriguez Rosales Osteotomies, T5-S1 posterior instrumentation, L3-L4, L4-L5, L5-S1 discectomies, L3-L4, L4-L5, L5- S1 posterior lumbar interbody fusion, L3-L4, L4-L5, L5-S1 insertion biomechanical devices,T5-S1 posterolateral arthrodesis, Kyphoscoliosis deformity correction. Neurologic -Patient is awake, alert, fully oriented. No acute distress -Monitor for mental status changes. Pulmonary -Patient saturating well on 2L nasal canula. -Maintain oxygen saturation greater than 90% Cardiac New onset Afib -Cardizem 30mg PO Q6H -Cardiology evaluation requested, regarding anticoagulation and further rate control. -Continue cardiac monitoring Musculoskeletal -Patient is POD #2 s/p orthopedic spine procedure. -Pain control with Oxycodone 10mg PO Q3 hours PRN pain 7-10 -DRIVE IN WAITER/WAITRESS Hydromorphone -Continue home Pregabalin 200mg PO TID Endocrine Hypothyroidism -Synthroid 120mcg PO daily Infectious disease -Patient received Cefazolin 2 grams IV Q8 hours x2 doses -Follow urine culture FEN -IV lactated Ringer's at 125mL/ hour -Within normal limits. Follow CMP, replete as necessary -NPO until passing flatus Prophylaxis -SCDs bilateral lower extremities, per orthopedic surgery Disposition -Patient medically stable for transfer to Telemetry floor. Case discussed with Dr. Contreras. Visit type - Emergency Visit Emergency Visit: Yes ED Registration Date: 01/12/19 Care time: The patient presented to the Emergency Department on the above date and was hospitalized for further evaluation of their emergent condition. - New Patient This patient is new to me today: No - Critical Care Critical Care patient: Yes Total Critical Care Time (in minutes): 35 Critical Care Statement: The care of this patient involved high complexity decision making to prevent further life threatening deterioration of the patient 's condition and/or to evaluate & treat vital organ system(s) failure or risk of failure. - Discharge Referral Referred to [facility] Med P.C.: No
--- NOTE | 2019-01-14 09:28 | PN ---
Progress Note, Physician Chief Complaint: generalized weakness, back pain - Current Medication List Current Medications: Active Medications Diltiazem HCl (Cardizem -) 30 mg PO Q6HPO [facility] Last Admin: 01/14/19 06:14 Dose: Not Given Diphenhydramine HCl (Benadryl Injection -) 25 mg IVPUSH ONCE PRN PRN Reason: FOR ITCHING Hydromorphone HCl (Hydromorphone 10 Mg/50 Ml-Ns) 10 mg HEAVY EQUIPMENT RENTAL MANAGER HEAVY EQUIPMENT RENTAL MANAGER [facility]; Protocol Stop: 01/20/19 02:31 Last Admin: 01/14/19 03:41 Dose: 10 mg Lactated Ringer's (Lactated Ringers Solution) 1,000 mls @ 125 mls/hr IV ASDIR [facility] Last Admin: 01/13/19 19:13 Dose: Not Given Levothyroxine Sodium (Synthroid -) 112 mcg PO DAILY@0700 [facility] Last Admin: 01/14/19 06:30 Dose: 112 mcg Naloxone HCl (Narcan -) 0.4 mg IVPUSH ONCE PRN PRN Reason: Sedation Ondansetron HCl (Zofran Injection) 4 mg IVPUSH ONCE PRN PRN Reason: NAUSEA Ondansetron HCl (Zofran Injection) 4 mg IVPUSH Q6H PRN PRN Reason: NAUSEA AND/OR VOMITING Oxycodone HCl (Roxicodone -) 10 mg PO Q3H PRN PRN Reason: PAIN LEVEL 7 - 10 Last Admin: 01/14/19 04:16 Dose: 10 mg Pregabalin (Lyrica -) 200 mg PO TID [facility] Last Admin: 01/14/19 06:29 Dose: 200 mg - Objective Vital Signs: Vital Signs Temperature 98.2 F 01/14/19 05:00 Pulse Rate 83 01/14/19 07:00 Respiratory Rate 11 01/14/19 07:00 Blood Pressure 121/80 01/14/19 07:00 O2 Sat by Pulse Oximetry (%) 85 L 01/14/19 05:00 Constitutional: Yes: Well Nourished, No Distress, Calm Eyes: Yes: WNL HENT: Yes: WNL Neck: Yes: WNL Cardiovascular: Yes: Tachycardia Respiratory: Yes: WNL Gastrointestinal: Yes: WNL Genitourinary: Yes: WNL Musculoskeletal: Yes: Back Pain, Joint Stiffness Extremities: Yes: WNL Edema: No Integumentary: Yes: WNL Wound/Incision: Yes: Clean/Dry, Well Approximated Neurological: Yes: WNL ...Motor Strength: WNL Psychiatric: Yes: WNL Labs: CBC, BMP 01/14/19 05:08 01/14/19 05:08 INR, PTT INR 1.14 (0.83-1.09) H 01/12/19 10:35 Assessment/Plan -55M POD s/p: L1, L2, L3, L4, L5, S1 bilateral laminectomies 2. L1, L2, L3, L4, L5, S1 bilateral osteotomies (facetectomies) 3. L2-L3 bilateral Rodriguez Rosales Osteotomies 4. T5-S1 posterior instrumentation 5. L3-L4, L4-L5, L5-S1 discectomies 6. L3-L4, L4-L5, L5-S1 posterior lumbar interbody fusion 7. L3-L4, L4-L5, L5-S1 insertion biomechanical devices 8. T5-S1 posterolateral arthrodesis 9. Kyphoscoliosis deformity correction 10. Bone allograft 11. Bone autograft 12. Bone marrow aspiration 13. Complex wound closure cont pain management, incentive spirometry. S/P successful extubation. 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 treated with IV adenosine and lopressor. currently in sinus rhythm. cardiology eval requested. -elevated LFT's: drug induced? US requested. avoid hepatotoxic agents if possible. -GI, DVT prophylaxis -ID: covered with ancef -leucocytosis: urine cx pending. CXR ordered. probably reactive component as well due to pain. -hyperthyroidism: likely contributed to tachy-arrhythmia. synthroid dose decreased to 120 mcg. -cont stool softeners for opioid induced constipation -PT/OT/OOB as tolerated -assessment and plan discussed with pt ,his , and staff. left my cell phone with to call me directly with any concerns. -ICU care appreciated. -
--- NOTE | 2019-01-14 11:07 | PN ---
Teaching Attending Note Name of Resident: Raymond Nelson ATTENDING PHYSICIAN STATEMENT I saw and evaluated the patient. I reviewed the resident's note and discussed the case with the resident. I agree with the resident's findings and plan as documented. SUBJECTIVE: Patient seen and examined in the ICU. Awake and alert. Still reports significant pain: 05/05. No CP or SOB. No acute events overnight. Intake & Output 01/11/19 01/12/19 01/13/19 01/14/19 23:59 23:59 23:59 23:59 Intake Total 5850 975 1175 Output Total 3710 1300 1200 Balance 2140 -325 -25 Weight 215 lb 215 lb 223 lb 12.8 oz Last Vital Signs Temp Pulse Resp BP Pulse Ox 98.2 F 83 11 121/80 85 L 01/14/19 05:00 01/14/19 07:00 01/14/19 07:00 01/14/19 07:00 01/14/19 05:00 Active Medications Diltiazem HCl (Cardizem -) 30 mg PO Q6HPO [facility] Last Admin: 01/14/19 06:14 Dose: Not Given Diphenhydramine HCl (Benadryl Injection -) 25 mg IVPUSH ONCE PRN PRN Reason: FOR ITCHING Hydromorphone HCl (Hydromorphone 10 Mg/50 Ml-Ns) 10 mg FIRE CLAIMS ADJUSTER FIRE CLAIMS ADJUSTER [facility]; Protocol Stop: 01/20/19 02:31 Last Admin: 01/14/19 03:41 Dose: 10 mg Lactated Ringer's (Lactated Ringers Solution) 1,000 mls @ 125 mls/hr IV ASDIR [facility] Last Admin: 01/13/19 19:13 Dose: Not Given Levothyroxine Sodium (Synthroid -) 112 mcg PO DAILY@0700 [facility] Last Admin: 01/14/19 06:30 Dose: 112 mcg Naloxone HCl (Narcan -) 0.4 mg IVPUSH ONCE PRN PRN Reason: Sedation Ondansetron HCl (Zofran Injection) 4 mg IVPUSH ONCE PRN PRN Reason: NAUSEA Ondansetron HCl (Zofran Injection) 4 mg IVPUSH Q6H PRN PRN Reason: NAUSEA AND/OR VOMITING Oxycodone HCl (Roxicodone -) 10 mg PO Q3H PRN PRN Reason: PAIN LEVEL 7 - 10 Last Admin: 01/14/19 04:16 Dose: 10 mg Pregabalin (Lyrica -) 200 mg PO TID HERRERA Last Admin: 01/14/19 06:29 Dose: 200 mg GENERAL: Awake and alert, NAD HEENT: NC/AT, (-) Icterus NECK: No JVD LUNGS: CTA bilaterally. No wheezes, and no crackles. No accessory muscle use. HEART: RRR, normal S1 and S2 without murmur ABDOMEN: Soft, nondistended, no grimmacing with abdominal palpation, hypoactive bowel sounds, no masses. No hepatomegaly MUSCULOSKELETAL: Surgical dressing in place on back, no deformities noted, feet offloaded EXTREMITIES: 2+ distal pulses, warm, well-perfused. No peripheral edema. NEUROLOGICAL: non-focal SKIN: Warm, dry, no rashes Laboratory Results - last 24 hr 01/13/19 01/13/19 01/14/19 19:15 19:15 05:08 WBC 16.3 H 16.9 H RBC 4.40 4.07 Hgb 13.1 12.0 Hct 38.4 35.6 MCV 87.3 87.3 MCH 29.8 29.6 MCHC 34.1 33.9 RDW 14.3 14.4 Plt Count 99 L 96 L MPV 10.1 10.2 Absolute Neuts (auto) 14.1 H Neutrophils % 86.4 H Lymphocytes % 5.0 L Monocytes % 8.4 Eosinophils % 0.1 Basophils % 0.1 Nucleated RBC % 0 Sodium 141 Potassium 4.1 Chloride 107 Carbon Dioxide 29 Anion Gap 5 L BUN 23.6 H Creatinine 0.8 Est GFR (CKD-EPI)AfAm 107.13 Est GFR (CKD-EPI)NonAf 92.44 Random Glucose 114 H Calcium 7.8 L Phosphorus 2.5 Magnesium 1.9 Total Bilirubin 0.6 AST 271 H ALT 63 H Alkaline Phosphatase 63 Total Protein 4.3 L Albumin 2.4 L TSH 0.01 L Free T4 1.75 H 01/14/19 05:08 WBC RBC Hgb Hct MCV MCH MCHC RDW Plt Count MPV Absolute Neuts (auto) Neutrophils % Lymphocytes % Monocytes % Eosinophils % Basophils % Nucleated RBC % Sodium 138 Potassium 4.1 Chloride 107 Carbon Dioxide 29 Anion Gap 3 L BUN 25.2 H Creatinine 0.7 Est GFR (CKD-EPI)AfAm 113.18 Est GFR (CKD-EPI)NonAf 97.65 Random Glucose 115 H Calcium 7.7 L Phosphorus 2.6 Magnesium 2.0 Total Bilirubin 0.7 AST 209 H ALT 55 Alkaline Phosphatase 58 Total Protein 4.2 L Albumin 2.2 L TSH Free T4 ASSESSMENT/PLAN: POD #1 1. L1, L2, L3, L4, L5, S1 bilateral laminectomies. 2. L1, L2, L3, L4, L5, S1 bilateral osteotomies (facetectomies). 3. L2-L3 bilateral Rodriguez Rosales Osteotomies. 4. T5-S1 posterior instrumentation. 5. L3-L4, L4-L5, L5-S1 discectomies. 6. L3-L4, L4-L5, L5-S1 posterior lumbar interbody fusion. 7. L3-L4, L4-L5, L5-S1 insertion biomechanical devices. 8. T5-S1 posterolateral arthrodesis. 9. Kyphoscoliosis deformity correction. 10. Bone allograft. 11. Bone autograft. 12. Bone marrow aspiration. 13. Complex wound closure (60cm) Hypothyroidism (?) UTI: asymptomatic Pain control per anesthesia PO as tolerated O2 as needed OOB to chair and D/C gaytan Noted empiric ABX Synthroid VTE prophylaxis Floor when OK with surgery Dr Foley
--- NOTE | 2019-01-14 11:50 | ECHO ---
Name: LAURA HOWELL Exam:Adult Echocardiogram Study Date: 01/14/2019 09:33 AM Age: 68 yrs Reason For Study: A-Fib Height: 75 in Weight: 215 lb BSA: 2.3 m2 MMode/2D Measurements & Calculations IVSd: 1.2 cm Ao root diam: 3.4 cm LVIDd: 4.2 cm LA dimension: 3.2 cm LVIDs: 2.7 cm LVPWd: 0.86 cm EDV(Teich): 80.8 ml LVOT diam: 2.0 cm ESV(Teich): 25.9 ml LAV (MOD-bp): 53.0 ml Doppler Measurements & Calculations MV E max rommel: 75.3 cm/sec Ao V2 max: 169.7 cm/sec MV A max rommel: 109.6 cm/sec Ao max P.5 mmHg MV E/A: 0.69 MV dec time: 0.14 sec PIETRO(V,D): 2.2 cm2 LV V1 max P.9 mmHg TR max rommel: 214.5 cm/sec LV V1 max: 121.8 cm/sec TR max P.4 mmHg PA V2 max: 145.2 cm/sec Med Peak E' Rommel: 6.6 cm/sec PA max P.4 mmHg Med E/e': 11.3 Lat Peak E' Rommel: 11.1 cm/sec Lat E/e': 6.8 Left Ventricle Left ventricular systolic function is normal. Ejection Fraction = 50-55%. The transmitral spectral Do ppler flow pattern is suggestive of impaired LV relaxation. Right Ventricle The right ventricle is normal in size and function. Atria Normal left and right atrial size and function. Mitral Valve The mitral valve is normal in structure and function. There is no mitral valve stenosis. There is no mitral regurgitation noted. Tricuspid Valve The tricuspid valve is normal in structure and function. There is mild tricuspid regurgitation. Aortic Valve The aortic valve opens well. No hemodynamically significant valvular aortic stenosis. No aortic regur gitation is present. Pulmonic Valve The pulmonic valve is not well seen, but is grossly normal. There is no pulmonic valvular stenosis. Great Vessels The aortic root is normal size. Pericardium/Pleura There is no pericardial effusion. Interpretation Summary Left ventricular systolic function is normal. Ejection Fraction = 50-55%. The transmitral spectral Doppler flow pattern is suggestive of impaired LV relaxation. There is mild tricuspid regurgitation. There is no pericardial effusion. MD Hendricks *Rich 01/14/2019 11:50 AM
--- NOTE | 2019-01-14 13:51 | EKG ---
Test Reason : Blood Pressure : / mmHG Vent. Rate : 097 BPM Atrial Rate : 102 BPM P-R Int : 000 ms QRS Dur : 116 ms QT Int : 336 ms P-R-T Axes : 000 -44 038 degrees QTc Int : 426 ms ATRIAL FIBRILLATION LEFT AXIS DEVIATION RIGHT BUNDLE BRANCH BLOCK INFERIOR INFARCT , AGE UNDETERMINED NONSPECIFIC T WAVE ABNORMALITY ABNORMAL ECG NO PREVIOUS ECGS AVAILABLE Confirmed by LINDY MCKEON MD ([id number]) on 01/14/2019 1:50:53 PM Referred By: Nathan Phan Confirmed By:LINDY MCKEON MD
--- NOTE | 2019-01-14 14:53 | CON.CARD ---
Consult Consult Specialty:: cardiology Referred by:: Sylvester Reason for Consultation:: Arrhythmias - History of Present Illness Chief Complaint: Status post back surgery History of Present Illness: The patient is a 68-year-old man, with chronic back pains, on medicinal marijuana, hypothyroidism, who was electively admitted for extensive back surgery on 01/13/2019 who postop developed transient atrial fibrillation and PSVT's. PSVT is broke with adenosine. The patient is currently back in sinus rhythm. He offers no cardiac complaints. Denies chest pains and shortness of breath. No palpitations. Hemodynamically stable. An echocardiogram that was done earlier today showed that both ventricles are functioning normally. There is mild mitral and tricuspid valve regurgitation. No other clinically significant findings on the echo. - History Source History Provided By: Patient, Family Member, Medical Record Limitations to Obtaining History: No Limitations - Past Medical History Endocrine: Yes: Hypothyroidism - Alcohol/Substance Use Hx Alcohol Use: No - Smoking History Smoking history: Never smoked Home Medications - Allergies Allergies/Adverse Reactions: Allergies Allergy/AdvReac Type Severity Reaction Status Date / Time Corticosteroids Allergy Severe SEVERE Verified 01/11/19 09:32 (Glucocorticoids) LUNG INFECTION NSAIDS (Non-Steroidal Allergy Intermediate GI PROBLEMS Verified 01/11/19 09:28 Anti-Inflamma Penicillins Allergy Verified 01/11/19 09:28 FLUOROQUINOLONES Allergy Intermediate WORSENED Uncoded 01/11/19 09:31 NEUROPATHY HORSE SERUM PROTEINS Allergy Uncoded 01/11/19 09:29 - Home Medications Home Medications: Ambulatory Orders Hydrocodone/Acetaminophen [[place] 10-325 Tablet] 1 each PO QID PRN 01/11/19 Levothyroxine Sodium [Synthroid] 200 mcg PO DAILY 01/11/19 Medical Marijuana 1 PRN PRN 01/11/19 Multivitamin [Multiple Vitamins] 1 each PO DAILY 01/11/19 Pregabalin [Lyrica -] 200 mg PO TID 01/11/19 Review of Systems - Review of Systems Constitutional: reports: Weakness Eyes: reports: No Symptoms HENT: reports: No Symptoms Neck: reports: Decreased ROM Cardiovascular: reports: No Symptoms Respiratory: reports: No Symptoms Gastrointestinal: reports: No Symptoms Genitourinary: reports: No Symptoms Breasts: reports: No Symptoms Reported Musculoskeletal: reports: Back Pain Integumentary: reports: No Symptoms Neurological: reports: No Symptoms Endocrine: reports: No Symptoms Hematology/Lymphatic: reports: No Symptoms Psychiatric: reports: No Symptoms Vital Signs: Vital Signs Temperature 98.2 F 01/14/19 05:00 Pulse Rate 83 01/14/19 07:00 Respiratory Rate 11 01/14/19 07:00 Blood Pressure 121/80 01/14/19 07:00 O2 Sat by Pulse Oximetry (%) 85 L 01/14/19 05:00 Constitutional: Yes: Well Nourished, Mild Distress Eyes: Yes: WNL, Conjunctiva Clear, EOM Intact HENT: Yes: WNL, Atraumatic, Normocephalic Neck: Yes: WNL, Trachea Midline, Tenderness Respiratory: Yes: WNL, Regular, CTA Bilaterally Gastrointestinal: Yes: WNL, Normal Bowel Sounds, Soft Renal/: Yes: WNL Cardiovascular: Yes: WNL, Regular Rate and Rhythm JVD: No Carotid Bruit: No PMI: Non-Displaced Heart Sounds: Yes: S1, S2 Murmur: Yes: Systolic Murmur, Grade 2 Musculoskeletal: Yes: Back Pain Extremities: Yes: WNL Edema: No Peripheral Pulses WNL: Yes Integumentary: Yes: WNL Neurological: Yes: WNL, Alert, Oriented Psychiatric: Yes: WNL, Alert, Oriented - Other Data Labs, Other Data: CBC, BMP 01/14/19 05:08 01/14/19 05:08 INR, PTT INR 1.14 (0.83-1.09) H 01/12/19 10:35 Assessment/Plan The patient is a 68-year-old man, with chronic back pains, on medicinal marijuana, hypothyroidism, who was electively admitted for extensive back surgery on 01/13/2019 who postop developed transient atrial fibrillation and PSVT's. PSVT is broke with adenosine. The patient is currently back in sinus rhythm. He offers no cardiac complaints. Denies chest pains and shortness of breath. No palpitations. Hemodynamically stable. An echocardiogram that was done earlier today showed that both ventricles are functioning normally. There is mild mitral and tricuspid valve regurgitation. No other clinically significant findings on the echo. There is no evidence of ischemia nor acute coronary syndrome. No acute ECG changes. The patient is hemodynamically stable. He is hyperthyroid. X Please treat hyperthyroidism. Possibly the reasons for the transient arrhythmias and combination of physical stress. X Would stop Cardizem. Start Toprol-XL 50 mg daily. Continue the other medications as currently. There is no need for further cardiac workup at this point. Cardiac stable. Please do not hesitate to call us PRN
--- NOTE | 2019-01-14 16:25 | PATH ---
Cytology Non-Gynecological Report Patient Name: LAURA HOWELL Med. Rec. 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 Specimen(s) Received URINE Clinical History Lumbar radiculopathy Final Diagnosis URINE FOR CYTOLOGY: SATISFACTORY FOR EVALUATION. NEGATIVE FOR HIGH GRADE UROTHELIAL CARCINOMA. SCATTERED UROTHELIAL CELLS PRESENT WITH FOCAL DEGENERATIVE CHANGES. RED BLOOD CELLS AND RARE NEUTROPHILS PRESENT. RARE UROTHELIAL FRAGMENTS PRESENT. Comment: Urothelial fragments are suggestive of prior instrumentation, lithiasis, or a low grade papillary neoplasm. Suggest clinical/radiologic correlation. See concurrent material [id number]. Electronically Signed Sara Mac M.D. Gross Description Approximately 15 cc of blanca fluid received fresh. One cytofunnel prepared and Pap stained.
--- NOTE | 2019-01-14 16:56 | PATH ---
Surgical Pathology Report Patient Name: LAURA HOWELL Med. Rec. 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 Specimen(s) Received DISC L3-S1 Clinical History Postural kyphosis thoracic lumbar region Final Diagnosis DISC, L3-S1, POSTERIOR CEMENTED FUSION: BENIGN INTERVERTEBRAL DISC TISSUE AND BONE. Electronically Signed Sara Mac M.D. Gross Description Received in formalin labeled "disc L3-S1," is a 4.5 x 3.5 x 0.4 cm aggregate of blanca fragments of fibrocartilaginous tissue. A surgical sales representative portion is submitted in one cassette. /01/13/2019 saudi01/13/2019
[2019-01-14] MEDS ORDERED: ONDANSETRON 4 MG/2 ML VIAL IVPUSH PRN ×2 (18:38)
[2019-01-14] MEDS ORDERED: NALOXONE HCL 0.4 MG/ML VIAL IVPUSH PRN (18:38)
[2019-01-14] MEDS ORDERED: HYDROmorphone *PCA* 10MG/50ML DISP.SYRIN ONE (18:57)
--- NOTE | 2019-01-14 19:12 | PN ---
Progress Note (short form) - Note Progress Note: 55M s/p L1-S1 decompression & T5-S1 posterolateral instrumented arthrodesis POD #2. Pain well controlled. Pt. denies overnight history of headaches, chest pain, shortness of breath, nausea, vomiting, chills, & sweats. (+) Wise; (+) Flatus; (-) BM. (+) Stood in room and walked with PT yesterday. All labs and vitals reviewed. PE: AAO x 3, NAD. T/L-Spine: Incision, dressing C/D/I. Drain intact & in place. B/L LE M: L2-S1 intact, minimum 3/5. B/L LE S: L2-S1 2/2. 55M s/p L1-S1 decompression & T5-S1 posterolateral instrumented arthrodesis POD #2. -Pain control: NO NSAID's. -Nursing care: fastidious avoidance of decubitus ulcers; log roll/place on wedge pillows every 2 hours; rolled up towels under the ankles to offload the heels. -DVT PPx: -Mechanical only: SINGH's, SCD's. -Chemical: None. -Incentive spirometry q15 min. -Clear liquid diet diet; advance as tolerated. -PT/OT/Rehab, OOB. -WBAT B/L LE. -Raised toilet seat. -No bending, lifting (>5 lbs), or twisting for 9-12 months. -Care per ICU & medical hospitalist Dr. Contreras. -Discharge planning: [facility]; f/u 7-10 days after discharge from [place] at [facility] office; call for appointment; . -Will follow. Nathan Phan MD (Orthopaedic Surgery).
[2019-01-14] MEDS: LACTATED RINGERS SOLUTION 1,000 ML IV SCH (21:51)
[2019-01-15] MEDS: oxyCODONE HCL 5 MG TABLET PO PRN ×4 (01:47→18:34)
[2019-01-15] MEDS: dilTIAZem HCL 30 MG TABLET (FP) PO SCH ×4 (01:52→18:23)
[2019-01-15] MEDS: HYDROmorphone *PCA* 10MG/50ML DISP.SYRIN PCA SCH ×4 (03:01→19:33)
[2019-01-15] MEDS ORDERED: KETOROLAC TROMETHAMINE 30 MG/1 ML VIAL IVPUSH ONE (04:00)
[2019-01-15] MEDS: PREGABALIN 100 MG CAPSULE PO SCH ×3 (06:03→22:23)
[2019-01-15] MEDS: LEVOTHYROXINE NA 112 MCG TABLET (FP) PO SCH (06:03)
[2019-01-15 06:29] LABS: HEMATOCRIT 32.2 % (35.4-49); HEMOGLOBIN 11.1 GM/dL (11.7-16.9); MCH 29.9 pg (25.7-33.7); MCHC 34.5 g/dl (32.0-35.9); MEAN CELL VOLUME 86.5 fl (80-96); MEAN PLT VOLUME 9.5 fl (7.5-11.1); PLATELET COUNT 93 K/MM3 (134-434); RBC 3.72 M/mm3 (4.00-5.60)
[2019-01-15 06:53] LABS: ALBUMIN 2.2 g/dl (3.4-5.0); BILIRUBIN,TOTAL 0.5 mg/dL (0.2-1); BLOOD UREA NITROGEN 26.4 mg/dL (7-18); CALCIUM 7.5 mg/dL (8.5-10.1); CREATININE 0.6 mg/dL (0.55-1.3); PHOSPHOROUS 1.9 mg/dL (2.5-4.9); POTASSIUM 3.9 mmol/L (3.5-5.1); TOT PROT 4.4 g/dl (6.4-8.2)
[2019-01-15] MEDS: LACTATED RINGERS SOLUTION 1,000 ML IV SCH ×2 (09:47→18:23)
--- NOTE | 2019-01-15 13:21 | PN ---
Progress Note, Physician Chief Complaint: generalized weakness, back pain - Current Medication List Current Medications: Active Medications Diltiazem HCl (Cardizem -) 30 mg PO Q6HPO [facility] Last Admin: 01/15/19 06:03 Dose: 30 mg Diphenhydramine HCl (Benadryl Injection -) 25 mg IVPUSH ONCE PRN PRN Reason: FOR ITCHING Hydromorphone HCl (Hydromorphone 10 Mg/50 Ml-Ns) 10 mg DIALYSIS RN DIALYSIS RN [facility]; Protocol Stop: 01/20/19 02:31 Last Admin: 01/15/19 08:42 Dose: 10 mg Lactated Ringer's (Lactated Ringers Solution) 1,000 mls @ 125 mls/hr IV ASDIR [facility] Last Admin: 01/15/19 09:47 Dose: 125 mls/hr Levothyroxine Sodium (Synthroid -) 112 mcg PO DAILY@0700 [facility] Last Admin: 01/15/19 06:03 Dose: 112 mcg Naloxone HCl (Narcan -) 0.4 mg IVPUSH ONCE PRN PRN Reason: Sedation Ondansetron HCl (Zofran Injection) 4 mg IVPUSH ONCE PRN PRN Reason: NAUSEA Ondansetron HCl (Zofran Injection) 4 mg IVPUSH Q6H PRN PRN Reason: NAUSEA AND/OR VOMITING Oxycodone HCl (Roxicodone -) 10 mg PO Q3H PRN PRN Reason: PAIN LEVEL 7 - 10 Last Admin: 01/15/19 09:49 Dose: 10 mg Pregabalin (Lyrica -) 200 mg PO TID [facility] Last Admin: 01/15/19 06:03 Dose: 200 mg - Objective Vital Signs: Vital Signs Temperature 98.3 F 01/15/19 04:00 Pulse Rate 90 01/15/19 08:48 Respiratory Rate 18 01/15/19 08:48 Blood Pressure 128/72 01/15/19 08:48 O2 Sat by Pulse Oximetry (%) 98 01/15/19 08:42 Constitutional: Yes: Well Nourished, No Distress Eyes: Yes: WNL HENT: Yes: WNL Neck: Yes: WNL Cardiovascular: Yes: WNL Respiratory: Yes: WNL Gastrointestinal: Yes: WNL Genitourinary: Yes: WNL Musculoskeletal: Yes: Back Pain Extremities: Yes: WNL Edema: No Peripheral Pulses WNL: Yes Integumentary: Yes: WNL Wound/Incision: Yes: Clean/Dry, Well Approximated Neurological: Yes: WNL ...Motor Strength: WNL Psychiatric: Yes: WNL Labs: CBC, BMP 01/15/19 05:55 01/15/19 05:55 INR, PTT INR 1.14 (0.83-1.09) H 01/12/19 10:35 Assessment/Plan -55M POD s/p: L1, L2, L3, L4, L5, S1 bilateral laminectomies 2. L1, L2, L3, L4, L5, S1 bilateral osteotomies (facetectomies) 3. L2-L3 bilateral Rodriguez Rosales Osteotomies 4. T5-S1 posterior instrumentation 5. L3-L4, L4-L5, L5-S1 discectomies 6. L3-L4, L4-L5, L5-S1 posterior lumbar interbody fusion 7. L3-L4, L4-L5, L5-S1 insertion biomechanical devices 8. T5-S1 posterolateral arthrodesis 9. Kyphoscoliosis deformity correction 10. Bone allograft 11. Bone autograft 12. Bone marrow aspiration 13. Complex wound closure cont pain management, incentive spirometry. S/P successful extubation. -s/p BEAN WEIGHER for new onset rapid A-fib, SVT. resolved treated with IV adenosine and lopressor. currently in sinus rhythm. cardiology eval appreciated. on toprol XL. TTE was normal. -elevated LFT's: likely drug induced, NSAIDs which he chronically takes at home. US requested. avoid hepatotoxic agents if possible. -GI, DVT prophylaxis -ID: covered with ancef. -leucocytosis: urine cx pending. CXR ordered. probably reactive component as well due to pain. CXR and UA normal. -hyperthyroidism: likely contributed to tachy-arrhythmia. synthroid dose decreased to 120 mcg. -cont stool softeners for opioid induced constipation -PT/OT/OOB as tolerated -assessment and plan discussed with pt ,his , and staff. left my cell phone with to call me directly with any concerns. -ICU care appreciated. -
--- NOTE | 2019-01-15 17:38 | PN ---
Progress Note (short form) - Note Progress Note: POD#3 In ICU Stable Sleeping Vitals as per chart C/O back pain but no leg pain Did pass flatus Spine dressing intact Drain in situ PLAN Continue medical Mx Will D/C drain tomorrow Pt mobilize D/C planning to [place]
[2019-01-16] MEDS: dilTIAZem HCL 30 MG TABLET (FP) PO SCH ×3 (00:06→13:00)
[2019-01-16] MEDS: oxyCODONE HCL 5 MG TABLET PO PRN ×3 (02:03→16:16)
[2019-01-16] MEDS: PREGABALIN 100 MG CAPSULE PO SCH ×3 (06:09→21:06)
[2019-01-16] MEDS: LEVOTHYROXINE NA 112 MCG TABLET (FP) PO SCH (06:43)
[2019-01-16] MEDS: HYDROmorphone *PCA* 10MG/50ML DISP.SYRIN PCA SCH ×3 (08:23→21:07)
[2019-01-16] MEDS: LACTATED RINGERS SOLUTION 1,000 ML IV SCH ×2 (11:25→21:08)
--- NOTE | 2019-01-16 12:12 | PN ---
Progress Note, Physician Chief Complaint: generalized weakness, back pain - Current Medication List Current Medications: Active Medications Diltiazem HCl (Cardizem -) 30 mg PO Q6HPO [facility] Last Admin: 01/16/19 06:09 Dose: 30 mg Diphenhydramine HCl (Benadryl Injection -) 25 mg IVPUSH ONCE PRN PRN Reason: FOR ITCHING Hydromorphone HCl (Hydromorphone 10 Mg/50 Ml-Ns) 10 mg CUFF SETTER CUFF SETTER [facility]; Protocol Stop: 01/20/19 02:31 Last Admin: 01/16/19 08:23 Dose: 10 mg Lactated Ringer's (Lactated Ringers Solution) 1,000 mls @ 125 mls/hr IV ASDIR [facility] Last Admin: 01/16/19 11:25 Dose: 125 mls/hr Levothyroxine Sodium (Synthroid -) 112 mcg PO DAILY@0700 [facility] Last Admin: 01/16/19 06:43 Dose: 112 mcg Naloxone HCl (Narcan -) 0.4 mg IVPUSH ONCE PRN PRN Reason: Sedation Ondansetron HCl (Zofran Injection) 4 mg IVPUSH ONCE PRN PRN Reason: NAUSEA Ondansetron HCl (Zofran Injection) 4 mg IVPUSH Q6H PRN PRN Reason: NAUSEA AND/OR VOMITING Oxycodone HCl (Roxicodone -) 10 mg PO Q3H PRN PRN Reason: PAIN LEVEL 7 - 10 Last Admin: 01/16/19 11:21 Dose: 10 mg Pregabalin (Lyrica -) 200 mg PO TID [facility] Last Admin: 01/16/19 06:09 Dose: 200 mg - Objective Vital Signs: Vital Signs Temperature 98.2 F 01/16/19 08:23 Pulse Rate 81 01/16/19 08:23 Respiratory Rate 18 01/16/19 08:23 Blood Pressure 149/85 01/16/19 08:23 O2 Sat by Pulse Oximetry (%) 100 01/16/19 08:30 Constitutional: Yes: Well Nourished, No Distress, Calm Eyes: Yes: WNL HENT: Yes: WNL Neck: Yes: WNL Cardiovascular: Yes: WNL Respiratory: Yes: WNL Gastrointestinal: Yes: WNL, Normal Bowel Sounds, Soft Genitourinary: Yes: WNL Musculoskeletal: Yes: Back Pain Extremities: Yes: WNL Edema: No Peripheral Pulses WNL: Yes Integumentary: Yes: WNL Wound/Incision: Yes: Clean/Dry, Well Approximated Neurological: Yes: WNL Psychiatric: Yes: WNL Labs: CBC, BMP 01/15/19 05:55 01/15/19 05:55 INR, PTT INR 1.14 (0.83-1.09) H 01/12/19 10:35 Assessment/Plan -55M POD s/p: L1, L2, L3, L4, L5, S1 bilateral laminectomies 2. L1, L2, L3, L4, L5, S1 bilateral osteotomies (facetectomies) 3. L2-L3 bilateral Rodriguez Rosales Osteotomies 4. T5-S1 posterior instrumentation 5. L3-L4, L4-L5, L5-S1 discectomies 6. L3-L4, L4-L5, L5-S1 posterior lumbar interbody fusion 7. L3-L4, L4-L5, L5-S1 insertion biomechanical devices 8. T5-S1 posterolateral arthrodesis 9. Kyphoscoliosis deformity correction 10. Bone allograft 11. Bone autograft 12. Bone marrow aspiration 13. Complex wound closure cont pain management, incentive spirometry. anesthesiology f/u appreciated. pain still uncontrolled. management to be more aggressive today. drain to be DC'd today by surgery. 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 resolved treated with IV adenosine and lopressor. currently in sinus rhythm. cardiology eval appreciated. on toprol XL. TTE was normal. -elevated LFT's: likely drug induced, NSAIDs which he chronically takes at home. US requested, results pending. avoid hepatotoxic agents if possible. -GI, DVT prophylaxis -ID: covered with ancef. -hyperthyroidism: likely contributed to tachy-arrhythmia. synthroid dose decreased to 112 mcg. -cont stool softeners for opioid induced constipation -PT/OT/OOB as tolerated -assessment and plan discussed with pt ,his , and staff. left my cell phone with to call me directly with any concerns. -ICU care appreciated. -
[2019-01-16] MEDS ORDERED: HYDROmorphone *PCA* 10MG/50ML DISP.SYRIN PCA SCH (12:31)
[2019-01-17] MEDS: HYDROmorphone *PCA* 10MG/50ML DISP.SYRIN PCA SCH ×6 (00:15→18:57)
[2019-01-17] MEDS: PREGABALIN 100 MG CAPSULE PO SCH ×3 (06:05→22:44)
[2019-01-17] MEDS: LEVOTHYROXINE NA 112 MCG TABLET (FP) PO SCH (06:05)
--- NOTE | 2019-01-17 10:06 | PN ---
Progress Note (short form) - Note Progress Note: Anesthesia Pain Rounds VSS,still c/o pain,passing gas but no stool. No N/V A/P Continue the TRAINS SERVICE CONDUCTOR Cat Leonard MD.
[2019-01-17] MEDS: oxyCODONE HCL 5 MG TABLET PO PRN (17:21)
[2019-01-17] MEDS ORDERED: oxyCODONE HCL 40 MG SUSTAINED ACTING TABLET PO ONE (17:23)
[2019-01-17] MEDS ORDERED: KETOROLAC TROMETHAMINE 30 MG/1 ML VIAL IVPUSH SCH (18:00)
[2019-01-17] MEDS: LACTATED RINGERS SOLUTION 1,000 ML IV SCH (20:44)
[2019-01-18] MEDS: HYDROmorphone *PCA* 10MG/50ML DISP.SYRIN PCA SCH ×3 (00:13→12:56)
[2019-01-18] MEDS: oxyCODONE HCL 5 MG TABLET PO PRN ×5 (00:48→18:59)
[2019-01-18] MEDS: PREGABALIN 100 MG CAPSULE PO SCH ×3 (05:41→21:38)
[2019-01-18] MEDS: LEVOTHYROXINE NA 112 MCG TABLET (FP) PO SCH (06:56)
[2019-01-18] MEDS: PANTOPRAZOLE SODIUM 40 MG VIAL IVPUSH SCH (11:32)
[2019-01-18 14:33] VITALS: BMI 29.2
--- NOTE | 2019-01-18 15:20 | PN ---
Progress Note, Physician Chief Complaint: generalized weakness, back pain - Current Medication List Current Medications: Active Medications Diphenhydramine HCl (Benadryl Injection -) 25 mg IVPUSH ONCE PRN PRN Reason: FOR ITCHING Docusate Sodium (Colace -) 100 mg PO TID [facility] Hydromorphone HCl (Hydromorphone 10 Mg/50 Ml-Ns) 10 mg ANCHORMAN ANCHORMAN [facility]; Protocol Stop: 01/20/19 02:31 Last Admin: 01/18/19 12:56 Dose: 10 mg Lactated Ringer's (Lactated Ringers Solution) 1,000 mls @ 125 mls/hr IV ASDIR [facility] Last Admin: 01/17/19 20:44 Dose: Not Given Levothyroxine Sodium (Synthroid -) 112 mcg PO DAILY@0700 [facility] Last Admin: 01/18/19 06:56 Dose: 112 mcg Metoprolol Succinate (Toprol Xl -) 50 mg PO DAILY [facility] Last Admin: 01/18/19 11:33 Dose: 50 mg Naloxone HCl (Narcan -) 0.4 mg IVPUSH ONCE PRN PRN Reason: Sedation Ondansetron HCl (Zofran Injection) 4 mg IVPUSH ONCE PRN PRN Reason: NAUSEA Ondansetron HCl (Zofran Injection) 4 mg IVPUSH Q6H PRN PRN Reason: NAUSEA AND/OR VOMITING Oxycodone HCl (Roxicodone -) 10 mg PO Q3H PRN PRN Reason: BREAKTHROUGH PAIN Last Admin: 01/18/19 11:33 Dose: 10 mg Pantoprazole Sodium (Protonix Iv) 40 mg IVPUSH DAILY [facility] Last Admin: 01/18/19 11:32 Dose: 40 mg Pregabalin (Lyrica -) 200 mg PO TID [facility] Last Admin: 01/18/19 13:06 Dose: 200 mg Senna (Senna -) 2 tab PO [facility] - Objective Vital Signs: Vital Signs Temperature 98.4 F 01/18/19 00:00 Pulse Rate 68 01/18/19 12:56 Respiratory Rate 17 01/18/19 12:56 Blood Pressure 146/95 01/18/19 12:56 O2 Sat by Pulse Oximetry (%) 97 01/18/19 12:56 Constitutional: Yes: Well Nourished, No Distress Eyes: Yes: WNL HENT: Yes: WNL Neck: Yes: WNL Cardiovascular: Yes: WNL Respiratory: Yes: WNL Gastrointestinal: Yes: WNL Genitourinary: Yes: WNL Musculoskeletal: Yes: Back Pain, Joint Stiffness Extremities: Yes: WNL Edema: No Peripheral Pulses WNL: Yes Integumentary: Yes: WNL Wound/Incision: Yes: Clean/Dry, Well Approximated, Dressing Dry and Intact Neurological: Yes: WNL Labs: CBC, BMP 01/15/19 05:55 01/15/19 05:55 INR, PTT INR 1.14 (0.83-1.09) H 01/12/19 10:35 Assessment/Plan -55M POD s/p: L1, L2, L3, L4, L5, S1 bilateral laminectomies 2. L1, L2, L3, L4, L5, S1 bilateral osteotomies (facetectomies) 3. L2-L3 bilateral Rodriguez Rosales Osteotomies 4. T5-S1 posterior instrumentation 5. L3-L4, L4-L5, L5-S1 discectomies 6. L3-L4, L4-L5, L5-S1 posterior lumbar interbody fusion 7. L3-L4, L4-L5, L5-S1 insertion biomechanical devices 8. T5-S1 posterolateral arthrodesis 9. Kyphoscoliosis deformity correction 10. Bone allograft 11. Bone autograft 12. Bone marrow aspiration 13. Complex wound closure cont pain management, incentive spirometry. anesthesiology f/u appreciated. pain better controlled. pain management consult requested. 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 treated with IV adenosine and lopressor. currently in sinus rhythm on toprol XL. TTE was normal. -elevated LFT's: likely drug induced, NSAIDs which he chronically takes at home. US requested, results WNL. avoid hepatotoxic agents if possible. -GI, DVT prophylaxis -ID: covered with ancef. -hyperthyroidism: likely contributed to tachy-arrhythmia. synthroid dose decreased to 112 mcg. -cont stool softeners for opioid induced constipation -PT/OT/OOB as tolerated -assessment and plan discussed with pt ,his , and staff. left my cell phone with to call me directly with any concerns. -
--- NOTE | 2019-01-18 20:22 | CONSULT ---
Consult Consult Specialty:: Pain Management Reason for Consultation:: Postoperative pain - History of Present Illness Chief Complaint: Back pain s/p Surgery History of Present Illness: 68 yr old male with upper back surgery and pain 10/10 on PAINTER AIRBRUSH and oxycodone. - History Source History Provided By: Patient Limitations to Obtaining History: No Limitations - Past Medical History Musculoskeletal: Yes: Chronic low back pain, Other (post op pain ) Endocrine: Yes: Hypothyroidism - Past Surgical History Additional Surgical History: Thyroidectomy - Alcohol/Substance Use Hx Alcohol Use: No - Smoking History Smoking history: Never smoked Home Medications - Allergies Allergies/Adverse Reactions: Allergies Allergy/AdvReac Type Severity Reaction Status Date / Time Corticosteroids Allergy Severe SEVERE Verified 01/11/19 09:32 (Glucocorticoids) LUNG INFECTION NSAIDS (Non-Steroidal Allergy Intermediate GI PROBLEMS Verified 01/11/19 09:28 Anti-Inflamma Penicillins Allergy Verified 01/11/19 09:28 FLUOROQUINOLONES Allergy Intermediate WORSENED Uncoded 01/11/19 09:31 NEUROPATHY HORSE SERUM PROTEINS Allergy Uncoded 01/11/19 09:29 - Home Medications Home Medications: Ambulatory Orders Hydrocodone/Acetaminophen [[place] 10-325 Tablet] 1 each PO QID PRN 01/11/19 Levothyroxine Sodium [Synthroid] 200 mcg PO DAILY 01/11/19 Medical Marijuana 1 PRN PRN 01/11/19 Multivitamin [Multiple Vitamins] 1 each PO DAILY 01/11/19 Pregabalin [Lyrica -] 200 mg PO TID 01/11/19 Review of Systems - Review of Systems Constitutional: reports: No Symptoms Eyes: reports: No Symptoms HENT: reports: No Symptoms Neck: reports: No Symptoms Cardiovascular: reports: No Symptoms Respiratory: reports: No Symptoms Gastrointestinal: reports: Constipation Genitourinary: reports: Other (gaytan's cath) Musculoskeletal: reports: Back Pain Physical Exam Vital Signs: Vital Signs Temperature 98.3 F 01/18/19 18:00 Pulse Rate 66 01/18/19 18:00 Respiratory Rate 15 01/18/19 18:00 Blood Pressure 134/74 01/18/19 18:00 O2 Sat by Pulse Oximetry (%) 97 01/18/19 12:56 Constitutional: Yes: Well Nourished Eyes: Yes: WNL HENT: Yes: WNL Neck: Yes: WNL Respiratory: Yes: WNL Gastrointestinal: Yes: WNL Musculoskeletal: Yes: Other (Dressing + back) Extremities: Yes: WNL Edema: No Wound/Incision: Yes: Other (deressing +) Neurological: Yes: WNL ...Motor Strength: WNL Psychiatric: Yes: WNL Labs: CBC, BMP 01/15/19 05:55 01/15/19 05:55 Problem List - Problems (1) Postoperative pain after spinal surgery Code(s): G89.18 - OTHER ACUTE POSTPROCEDURAL PAIN Assessment/Plan Discuss in detail and answered all the questions. 1. continue current care 2. Physical therapy -evaluation bed mobility and transfer and mobility with Assistive device. 3. DC PAINTER AIRBRUSH tomorrow AM , reuces the dose and increase the frequency. 4. Morphine Sulfate SR 30 mg PO BID 5. Oxycodone 10 mg PO q6 PRN 6. Discussed with RN to wean the PAINTER AIRBRUSH Thank you very much [phone]
[2019-01-18] MEDS ORDERED: HYDROmorphone *PCA* 10MG/50ML DISP.SYRIN PCA SCH (21:00)
[2019-01-18] MEDS: morphine SO4 SUSTAINED ACTING 30 MG TABLET.SA PO SCH (21:35)
[2019-01-18] MEDS: SENNOSIDES 8.6MG TABLET (FP) PO SCH (21:37)
[2019-01-18] MEDS: CYCLOBENZAPRINE HCL 10 MG TABLET (FP) PO SCH (21:38)
[2019-01-18] MEDS: DOCUSATE SODIUM 100 MG CAPSULE (FP) PO SCH (21:38)
[2019-01-18] MEDS: LACTATED RINGERS SOLUTION 1,000 ML IV SCH (21:46)
[2019-01-19] MEDS ORDERED: HYDROmorphone *PCA* 10MG/50ML DISP.SYRIN PCA SCH (01:45)
[2019-01-19] MEDS: oxyCODONE HCL 5 MG TABLET PO PRN ×2 (01:49→10:12)
[2019-01-19] MEDS: HYDROmorphone *PCA* 10MG/50ML DISP.SYRIN PCA SCH ×2 (01:54→03:11)
[2019-01-19] MEDS: PREGABALIN 100 MG CAPSULE PO SCH ×3 (05:56→21:19)
[2019-01-19] MEDS: DOCUSATE SODIUM 100 MG CAPSULE (FP) PO SCH ×3 (05:56→21:19)
[2019-01-19] MEDS ORDERED: oxyCODONE HCL 5 MG TABLET PO ONE (06:00)
[2019-01-19 06:22] LABS: BASO % 0.3 % (0-2.0); HEMATOCRIT 31.3 % (35.4-49); HEMOGLOBIN 10.9 GM/dL (11.7-16.9); LYMPH % 9.3 % (8-40); MCHC 34.8 g/dl (32.0-35.9); MEAN CELL VOLUME 86.3 fl (80-96); MEAN PLT VOLUME 8.2 fl (7.5-11.1); MONO % 10.1 % (3.8-10.2); NEUT % 77.3 % (42.8-82.8); PLATELET COUNT 241 K/MM3 (134-434); RBC 3.63 M/mm3 (4.00-5.60); RDW 13.8 % (11.9-15.9); WHITE BLOOD COUNT 8.4 K/mm3 (4.0-10.0)
[2019-01-19] MEDS: LEVOTHYROXINE NA 112 MCG TABLET (FP) PO SCH (06:33)
[2019-01-19 06:42] LABS: ALBUMIN 2.2 g/dl (3.4-5.0); BLOOD UREA NITROGEN 12.4 mg/dL (7-18); CALCIUM 7.9 mg/dL (8.5-10.1); CREATININE 0.5 mg/dL (0.55-1.3); POTASSIUM 3.8 mmol/L (3.5-5.1); TOT PROT 4.7 g/dl (6.4-8.2)
[2019-01-19] MEDS: morphine SO4 SUSTAINED ACTING 30 MG TABLET.SA PO SCH ×2 (10:11→21:20)
[2019-01-19] MEDS: CYCLOBENZAPRINE HCL 10 MG TABLET (FP) PO SCH ×2 (10:11→21:21)
[2019-01-19] MEDS: PANTOPRAZOLE SODIUM 40 MG VIAL IVPUSH SCH (10:13)
--- NOTE | 2019-01-19 15:34 | PN ---
Progress Note (short form) - Note Progress Note: Anesthesia/pain Pt seen and examined S:alert and awake O: Vital Signs Temperature 97.8 F 01/19/19 14:00 Pulse Rate 80 01/19/19 14:00 Respiratory Rate 12 01/19/19 14:00 Blood Pressure 130/86 01/19/19 14:00 O2 Sat by Pulse Oximetry (%) 99 01/19/19 12:00 CBC, BMP 01/19/19 05:16 01/19/19 05:16 Current Active Problems Postoperative pain after spinal surgery (Acute) s/p T5-S12 PLIF Pt does not use PHYSICAL THERAPY ASST becuase he is awaiting for transfer. Will stop PHYSICAL THERAPY ASST Advised to take po and call for more if necessary Chito Narayan MD
--- NOTE | 2019-01-19 16:13 | PN ---
Progress Note, Physician Chief Complaint: generalized weakness, back pain - Current Medication List Current Medications: Active Medications Cyclobenzaprine HCl (Flexeril -) 10 mg PO BID [facility] Last Admin: 01/19/19 10:11 Dose: 10 mg Diphenhydramine HCl (Benadryl Injection -) 25 mg IVPUSH ONCE PRN PRN Reason: FOR ITCHING Docusate Sodium (Colace -) 100 mg PO TID [facility] Last Admin: 01/19/19 15:24 Dose: 100 mg Hydromorphone HCl (Hydromorphone 10 Mg/50 Ml-Ns) 8 mg BOARD CERTIFIED FAMILY PHYSICIAN BOARD CERTIFIED FAMILY PHYSICIAN [facility]; Protocol Last Admin: 01/19/19 03:11 Dose: 8 mg Lactated Ringer's (Lactated Ringers Solution) 1,000 mls @ 125 mls/hr IV ASDIR [facility] Last Admin: 01/18/19 21:46 Dose: 125 mls/hr Levothyroxine Sodium (Synthroid -) 112 mcg PO DAILY@0700 [facility] Last Admin: 01/19/19 06:33 Dose: 112 mcg Metoprolol Succinate (Toprol Xl -) 50 mg PO DAILY [facility] Last Admin: 01/19/19 10:13 Dose: 50 mg Morphine Sulfate (Ms Contin -) 30 mg PO BID [facility] Last Admin: 01/19/19 10:11 Dose: 30 mg Naloxone HCl (Narcan -) 0.4 mg IVPUSH ONCE PRN PRN Reason: Sedation Ondansetron HCl (Zofran Injection) 4 mg IVPUSH ONCE PRN PRN Reason: NAUSEA Ondansetron HCl (Zofran Injection) 4 mg IVPUSH Q6H PRN PRN Reason: NAUSEA AND/OR VOMITING Oxycodone HCl (Roxicodone -) 10 mg PO Q6H PRN PRN Reason: BREAKTHROUGH PAIN Last Admin: 01/19/19 10:12 Dose: 10 mg Pantoprazole Sodium (Protonix Iv) 40 mg IVPUSH DAILY [facility] Last Admin: 01/19/19 10:13 Dose: 40 mg Pregabalin (Lyrica -) 200 mg PO TID [facility] Last Admin: 01/19/19 15:23 Dose: 200 mg Senna (Senna -) 2 tab PO HS [facility] Last Admin: 01/18/19 21:37 Dose: 2 tab - Objective Vital Signs: Vital Signs Temperature 97.8 F 01/19/19 14:00 Pulse Rate 80 01/19/19 14:00 Respiratory Rate 12 01/19/19 14:00 Blood Pressure 130/86 01/19/19 14:00 O2 Sat by Pulse Oximetry (%) 99 01/19/19 12:00 Constitutional: Yes: Well Nourished, Anxious Eyes: Yes: WNL HENT: Yes: WNL Neck: Yes: WNL Cardiovascular: Yes: WNL Respiratory: Yes: WNL Gastrointestinal: Yes: WNL Genitourinary: Yes: WNL Musculoskeletal: Yes: Back Pain, Joint Stiffness Extremities: Yes: WNL Edema: No Peripheral Pulses WNL: Yes Integumentary: Yes: WNL Wound/Incision: Yes: Clean/Dry, Well Approximated Neurological: Yes: WNL ...Motor Strength: WNL Psychiatric: Yes: WNL, Oriented, Agitated Labs: CBC, BMP 01/19/19 05:16 01/19/19 05:16 INR, PTT INR 1.14 (0.83-1.09) H 01/12/19 10:35 Assessment/Plan -55M POD s/p: L1, L2, L3, L4, L5, S1 bilateral laminectomies 2. L1, L2, L3, L4, L5, S1 bilateral osteotomies (facetectomies) 3. L2-L3 bilateral Rodriguez Rosales Osteotomies 4. T5-S1 posterior instrumentation 5. L3-L4, L4-L5, L5-S1 discectomies 6. L3-L4, L4-L5, L5-S1 posterior lumbar interbody fusion 7. L3-L4, L4-L5, L5-S1 insertion biomechanical devices 8. T5-S1 posterolateral arthrodesis 9. Kyphoscoliosis deformity correction 10. Bone allograft 11. Bone autograft 12. Bone marrow aspiration 13. Complex wound closure cont pain management, incentive spirometry. pain management consult appreciated. 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 treated with IV adenosine and lopressor. currently in sinus rhythm on toprol XL. TTE was normal. -elevated LFT's: likely drug induced, NSAIDs which he chronically takes at home. US requested, results WNL. avoid hepatotoxic agents if possible. -GI, DVT prophylaxis -ID: covered with ancef. -hyperthyroidism: likely contributed to tachy-arrhythmia. synthroid dose decreased to 112 mcg. -cont stool softeners for opioid induced constipation -PT/OT/OOB as tolerated -assessment and plan discussed with pt ,his , and staff. left my cell phone with to call me directly with any concerns. DC to rehab planned for tomorrow -
[2019-01-19] MEDS: SENNOSIDES 8.6MG TABLET (FP) PO SCH (21:20)
[2019-01-20] MEDS: oxyCODONE HCL 5 MG TABLET PO PRN (03:19)
[2019-01-20] MEDS: PREGABALIN 100 MG CAPSULE PO SCH (05:48)
[2019-01-20] MEDS: DOCUSATE SODIUM 100 MG CAPSULE (FP) PO SCH (05:48)
[2019-01-20] MEDS: LEVOTHYROXINE NA 112 MCG TABLET (FP) PO SCH (06:06)
--- NOTE | 2019-01-20 09:06 | DS ---
Physical Examination Vital Signs: Vital Signs Temperature 98.2 F 01/20/19 06:00 Pulse Rate 72 01/20/19 06:00 Respiratory Rate 16 01/20/19 06:00 Blood Pressure 138/80 01/20/19 06:00 O2 Sat by Pulse Oximetry (%) 99 01/19/19 19:58 Constitutional: Yes: Well Nourished, No Distress, Anxious Eyes: Yes: WNL HENT: Yes: WNL Neck: Yes: WNL Cardiovascular: Yes: WNL Respiratory: Yes: WNL Gastrointestinal: Yes: WNL Renal/: Yes: WNL Musculoskeletal: Yes: Back Pain Extremities: Yes: WNL Edema: No Peripheral Pulses WNL: Yes Integumentary: Yes: WNL Wound/Incision: Yes: Clean/Dry, Well Approximated, Dressing Dry and Intact Neurological: Yes: WNL ...Motor Strength: WNL Psychiatric: Yes: WNL Labs: CBC, BMP 01/19/19 05:16 01/19/19 05:16 Discharge Summary Reason For Visit: POSTURAL KYPHOSIS, THORACOLUMBAR REGION Current Active Problems Postoperative pain after spinal surgery (Acute) Hospital Course: -55M POD s/p: L1, L2, L3, L4, L5, S1 bilateral laminectomies 2. L1, L2, L3, L4, L5, S1 bilateral osteotomies (facetectomies) 3. L2-L3 bilateral Rodriguez Rosales Osteotomies 4. T5-S1 posterior instrumentation 5. L3-L4, L4-L5, L5-S1 discectomies 6. L3-L4, L4-L5, L5-S1 posterior lumbar interbody fusion 7. L3-L4, L4-L5, L5-S1 insertion biomechanical devices 8. T5-S1 posterolateral arthrodesis 9. Kyphoscoliosis deformity correction 10. Bone allograft 11. Bone autograft 12. Bone marrow aspiration 13. Complex wound closure cont pain management, incentive spirometry. pain management consult appreciated. -s/p MED PEDS for new onset rapid A-fib, SVT. treated with IV adenosine and lopressor. currently in sinus rhythm on toprol XL. TTE was normal. -elevated LFT's: likely drug induced, NSAIDs which he chronically takes at home. US requested, results WNL. avoid hepatotoxic agents if possible. -GI, DVT prophylaxis -ID: covered with ancef. -hyperthyroidism: likely contributed to tachy-arrhythmia. synthroid dose decreased to 112 mcg. -cont stool softeners for opioid induced constipation -PT/OT/OOB as tolerated -assessment and plan discussed with pt ,his , and staff. Condition: Good - Instructions - Home Medications Comprehensive Discharge Medication List: Ambulatory Orders Hydrocodone/Acetaminophen [[place] 10-325 Tablet] 1 each PO QID PRN 01/11/19 Levothyroxine Sodium [Synthroid] 200 mcg PO DAILY 01/11/19 Medical Marijuana 1 PRN PRN 01/11/19 Multivitamin [Multiple Vitamins] 1 each PO DAILY 01/11/19 Pregabalin [Lyrica -] 200 mg PO TID 01/11/19
[2019-01-20] MEDS: CYCLOBENZAPRINE HCL 10 MG TABLET (FP) PO SCH (09:47)
[2019-01-20] MEDS: morphine SO4 SUSTAINED ACTING 30 MG TABLET.SA PO SCH (09:47)
[2019-01-20] MEDS: PANTOPRAZOLE SODIUM 40 MG VIAL IVPUSH SCH (09:58)
[2019-01-20 11:22] VITALS: BP 149/88; PULSE 78; TEMP 97.9
== END 2019-01-20 11:30 | disposition short-term general hospital (02) | DRG 454 ==
LOC: JSAMEDAYSX 06:17 → JICU 18:57 → J2W 01-14 17:09
PROVIDERS: ADMIT Orthopaedic Surgery Adult Reconstructive Orthopaedic Surgery; ATTEND Orthopaedic Surgery Adult Reconstructive Orthopaedic Surgery
PROC: 0SG1071 Fusion of 2 or more Lumbar Vertebral Joints with Autologous Tissue Substitute, Posterior Approach, Posterior Column, Open Approach (ICD-10-PCS; 2019-01-12)
PROC: 0SB20ZZ Excision of Lumbar Vertebral Disc, Open Approach (ICD-10-PCS; 2019-01-12)
PROC: 0SG30AJ Fusion of Lumbosacral Joint with Interbody Fusion Device, Posterior Approach, Anterior Column, Open Approach (ICD-10-PCS; 2019-01-12)
PROC: 0SG3071 Fusion of Lumbosacral Joint with Autologous Tissue Substitute, Posterior Approach, Posterior Column, Open Approach (ICD-10-PCS; 2019-01-12)
PROC: 0SB40ZZ Excision of Lumbosacral Disc, Open Approach (ICD-10-PCS; 2019-01-12)
PROC: 0RG70AJ Fusion of 2 to 7 Thoracic Vertebral Joints with Interbody Fusion Device, Posterior Approach, Anterior Column, Open Approach (ICD-10-PCS; 2019-01-12)
PROC: 0RG7071 Fusion of 2 to 7 Thoracic Vertebral Joints with Autologous Tissue Substitute, Posterior Approach, Posterior Column, Open Approach (ICD-10-PCS; 2019-01-12)
PROC: 0RGA0AJ Fusion of Thoracolumbar Vertebral Joint with Interbody Fusion Device, Posterior Approach, Anterior Column, Open Approach (ICD-10-PCS; 2019-01-12)
PROC: 0RGA071 Fusion of Thoracolumbar Vertebral Joint with Autologous Tissue Substitute, Posterior Approach, Posterior Column, Open Approach (ICD-10-PCS; 2019-01-12)
PROC: 07DR3ZZ Extraction of Iliac Bone Marrow, Percutaneous Approach (ICD-10-PCS; 2019-01-12)
PROC: 4A11X4G Monitoring of Peripheral Nervous Electrical Activity, Intraoperative, External Approach (ICD-10-PCS; 2019-01-12)
PROC: B01BZZZ Fluoroscopy of Spinal Cord (ICD-10-PCS; 2019-01-12)
PROC: 0SG10AJ Fusion of 2 or more Lumbar Vertebral Joints with Interbody Fusion Device, Posterior Approach, Anterior Column, Open Approach (ICD-10-PCS; principal; 2019-01-12 08:00)
DX: M40.05 Postural kyphosis, thoracolumbar region (principal); I97.191 Other postprocedural cardiac functional disturbances following other surgery; I47.1 Supraventricular tachycardia; M48.07 Spinal stenosis, lumbosacral region; M48.062 Spinal stenosis, lumbar region with neurogenic claudication; M51.17 Intervertebral disc disorders with radiculopathy, lumbosacral region; Y83.8 Other surgical procedures as the cause of abnormal reaction of the patient, or of later complication, without mention of misadventure at the time of the procedure; I48.91 Unspecified atrial fibrillation; E03.9 Hypothyroidism, unspecified; I34.0 Nonrheumatic mitral (valve) insufficiency; I36.1 Nonrheumatic tricuspid (valve) insufficiency
CPT/HCPCS: 36415; 36430; 36511; 71045-TC-FY; 76000-TC-FY; 76705-TC; 80048; 80053; 81003; 83735; 84100; 84439; 84443; 85025; 85027; 85610; 85730; 86850; 86900; 86901; 86922; 87086; 88108; 88304-TC; 93005; 93010; 93306-TC; 94010; 94760; 97116-GP; 97162-GP; J0131; J1644; P9038; P9058